=== PATIENT | male | born 1960 | race Caucasian/White ===

== ENCOUNTER 2023-11-21 14:46 | Inpatient (IN) | payer OTHER, SELFPAY ==
[2023-11-17] VITALS (10 sets, daily range): BP systolic 20–156; BP diastolic 62–85; BMI 33.5; BMI 32.6
--- NOTE | 2023-11-17 15:44 | ED.GENMED ---
History of Present Illness
General
Chief Complaint: Abdominal Pain
Source: patient
Exam Limitations: none
Time Seen by Provider: 11/17/23 15:31
Nursing documentation reviewed up to this point in time: agreed with
History of Present Illness
History of Present Illness:
Patient is a 63-year-old male who presents to the ER complaining of abdominal pain for the past 4 hours. He reports pain is mostly in the right lower quadrant. He denies any nausea vomiting diarrhea. It has been constant. He does have a history
of hypertension. He also has been on Zepbound to the past 6 months but has tolerated that well. He does report he gets some constipation from this medication he is a little constipated. He denies any back pain. He denies any urinary frequency
urgency or dysuria. No prior abdominal surgeries.
Past History
Past History
ED Past Medical History: Psychiatric (Anxiety)
ED Past Surgical History: Negative Cardiac
Social History
Tobacco: Non-smoker
Alcohol: None
Drug: None
Personal:
Living: with family
Employment: Employed
Family History
Family History: Other (Noncontributory)
Review of Systems
Review of Systems
Allergies reviewed?: Yes
All Other Systems: ROS reviewed and negative except as documented in HPI and ROS
Constitutional: Reports no symptoms
Respiratory: Reports no symptoms
Cardiac: Reports no symptoms
ABD/GI: Reports abdominal pain and constipated (mild constipation but moved bowels today ); Denies nausea, vomiting or diarrhea
: Reports no symptoms
Musculoskeletal: Reports no symptoms
Skin: Reports no symptoms
Neurological: Reports no symptoms
Psychiatric: Reports no symptoms
Phy Exam
General Physical Exam
General Presentation: no apparent distress
General age: appears stated age
General Skin: warm and dry
General Habitus: normal
General Mental: alert
General Hydration: appears well hydrated
Gastrointestinal Exam
Gastrointestinal Exam: soft and other (Tender right lower quadrant no rebound )
Neurological Exam
Neurological Exam: alert and oriented x3
Musculoskeletal Exam
Musculoskeletal Exam: full ROM
Skin Exam
Skin Exam: normal color and warm/dry
Psychiatric Exam
Psychiatric Exam: normal mood/affect
Course
Orders/Labs/Results
Orders:
Orders
11/17/23 Dinner
2000 calorie (17 carb) Diabetic
At Your Request: Full Participation
Does patient need a safe tray?: No
11/17/23 15:40
Complete Blood Count/With Diff Urgent
Comprehensive Metabolic Panel Urgent
Lipase Urgent
11/17/23 15:44
IV Insert/Care/Rem.- Treatment PRN
0.9% Sodium Chloride 1000 ml [Nss] 1,000 ml IV BOLUS
Ketorolac [Toradol] 15 mg IV NOW STA
11/17/23 15:45
CT Abd/Pel (IV only)-DH only Urgent
Comment:
Reason For Exam: right sided abd pain
11/17/23 17:20
Urinalysis Reflex To Culture Urgent
Date Specimen was Collected: 11/17/23
Time Specimen was Collected: 17:18
11/17/23 17:29
Piperacillin/Tazo 3.375 Gram [Zosyn] 3.375 gram in 50 ml IV NOW
11/17/23 18:02
HYDROmorphone [Dilaudid] 0.25 mg IV PACU-Q5MPRN PRN
HYDROmorphone [Dilaudid] 0.5 mg IV PACU-Q5MPRN PRN
Meperidine [Demerol] 12.5 mg IV PACU-Q5MPRN PRN
Ondansetron Injectable [Zofran] 4 mg IV PACU-ONCEPRN PRN
Prochlorperazine [Compazine] 5 mg IV PACU-ONCEPRN PRN
Notify MD As Directed
Notify physician if: for SDS patients with known or suspected sleep obstructive sleep apnea, monitor in the
PACU.
Notify MD for any apneic/desaturation episodes
O2 Therapy [RESP] Urgent
Titrate/Wean O2 to maintain O2 sat greater than (%): 92
Special Instructions: -Provide supplemental oxygen to achieve O2 sat of 92% or greater.
-After 15 min, may wean O2 and discontinue if patient is able to maintain O2 sat of 92%
or greater during recovery period.
If patient is a discharge home, without oxygen therapy, notify anestheiologist if
unable to maintain O2 SAT of 92% or greater on room air for MD clearance.
11/17/23 18:15
Normosol (Mult Electrolytes) [Normosol-R/Plasmalyte-A] 1,000 ml IV PER PROTOCOL
11/17/23 18:54
Bupivacaine 0.5%Pf/Epinephrin [Sensorcain-Mpf Epi 0.5%-0.0005] 30 ml .ROUTE .STK-MED ONE
11/17/23 18:55
Dexamethasone Sod Phosphate [Decadron] 20 mg .ROUTE .STK-MED ONE
Fentanyl Citrate/Pf [Sublimaze] 100 mcg .ROUTE .STK-MED ONE
Lidocaine HCl/Pf [Xylocaine-Mpf 1% Vial] 50 mg .ROUTE .STK-MED ONE
Midazolam HCl [Versed] 2 mg .ROUTE .STK-MED ONE
Ondansetron Injectable [Zofran] 4 mg .ROUTE .STK-MED ONE
Propofol [Diprivan] 20 ml .ROUTE .STK-MED
11/17/23 19:18
OR Pathology Routine
Pre-Operative Diagnosis: acute appendicitis
Operative Procedure: lap appy
Surgeon: shavonne
Specimen Type: appendix
11/17/23 19:29
HYDROmorphone [Dilaudid] 1 mg .ROUTE .STK-MED ONE
11/17/23 19:39
Sugammadex Sodium [Bridion] 200 mg .ROUTE .STK-MED ONE
11/17/23 20:11
Admit Patient As Directed
Co-Sign Provider:
Level of Care: Post Proc/Surg Recovery
Assign to:: Medical/Surgical
Physician / Group: Shavonne
Diagnosis: Acute appendicitis
Reason for Overnight Stay: Pulmonary Desaturation
Other Reason for Overnight Stay: postop recovery
Code Status As Directed
Resuscitation Status: Full Code
Activity As Directed
Activity Level: Out of Bed-Early Mobility
Anti-embolism (FRANTZ) Hose As Directed
Type: Thigh high
Intake/ Output As Directed
Frequency: Per unit guidelines
Vital Signs As Directed
Frequency: Per unit guidelines
PRN Pain Medication Management As Directed
May give lesser potent ordered pain med per pt: Yes
preference::
Protocol:: Medication orders for pain may be administered in a
manner that supports deferring to patient preference
when the pt is:
- Requesting an ordered lesser potent pain medication.
Least to most potent pain medications are defined
as: acetaminophen < NSAID < tramadol < opioids
(morphine, oxycodone, hydromorphone).
- Requesting a lesser dose of the same medication IF
ORDERED.
- Requesting a less intrusive route of administration
if both routes are prescribed by the provider (PO <
IV).
11/17/23 20:13
DX Deep Vein Thrombosis Video Routine
11/17/23 20:14
Pneumatic Compression Sleeves As Directed
Type: Knee high
11/17/23 20:15
Rx Incentive Spirometry [RESP] Routine
Frequency: q1h while awake
# of times per hour: 10
11/17/23 20:16
Acetaminophen [Tylenol] 650 mg PO Q4HPRN PRN
Ibuprofen [Motrin] 400 mg PO Q6HPRN PRN
Ondansetron Injectable [Zofran] 4 mg IV Q6HPRN PRN
Oxycodone [Roxicodone] 10 mg PO Q4HPRN PRN
Oxycodone [Roxicodone] 5 mg PO Q4HPRN PRN
11/17/23 21:00
Flush (0.9% Sodium Chloride) [Flush (Nss)] See Dose Instructions IV PER PROTOCOL
11/17/23 22:00
Paroxetine [Paxil] 30 mg PO HS
11/17/23 22:40
Cpap [RESP] Routine
Patient to use own unit?: No
Set Pressure (cm H2O): 8
Instructions: hs prn adjust as needed for the patient`s comfort
11/17/23 22:45
0.9% Sodium Chloride 1000 ml [Nss] 1,000 ml IV 80 mls/hr
11/18/23 00:00
Piperacillin/Tazo 3.375 Gram [Zosyn] 3.375 gram in 50 ml IV Q6H
11/18/23 00:41
Type+Screen Stat
BMP [Basic Metabolic Panel] Stat
CBC/With Diff [Complete Blood Count/With Diff] Stat
11/18/23 00:43
Blood Bank Products [* Blood Bank Products] Stat
Blood Bank Products: *Packed RBC Leuko(PRBC's)
Quantity: 2
Transfuse Today: Yes
Reason: Bleeding
11/18/23 01:02
Dexamethasone Sod Phosphate [Decadron] 20 mg .ROUTE .STK-MED ONE
Fentanyl Citrate/Pf [Sublimaze] 100 mcg .ROUTE .STK-MED ONE
Lidocaine 2% Mpf [Xylocaine Mpf 2%] 100 mg .ROUTE .STK-MED ONE
Midazolam HCl [Versed] 2 mg .ROUTE .STK-MED ONE
Propofol [Diprivan] 20 ml .ROUTE .STK-MED
Rocuronium [place] [Rocuronium] 100 mg .ROUTE .STK-MED ONE
11/18/23 01:03
HYDROmorphone [Dilaudid] 0.25 mg IV PACU-Q5MPRN PRN
HYDROmorphone [Dilaudid] 0.5 mg IV PACU-Q5MPRN PRN
Meperidine [Demerol] 12.5 mg IV PACU-Q5MPRN PRN
Ondansetron Injectable [Zofran] 4 mg IV PACU-ONCEPRN PRN
Prochlorperazine [Compazine] 5 mg IV PACU-ONCEPRN PRN
Notify MD As Directed
Notify physician if: for SDS patients with known or suspected sleep obstructive sleep apnea, monitor in the
PACU.
Notify MD for any apneic/desaturation episodes
O2 Therapy [RESP] Urgent
Titrate/Wean O2 to maintain O2 sat greater than (%): 92
Special Instructions: -Provide supplemental oxygen to achieve O2 sat of 92% or greater.
-After 15 min, may wean O2 and discontinue if patient is able to maintain O2 sat of 92%
or greater during recovery period.
If patient is a discharge home, without oxygen therapy, notify anestheiologist if
unable to maintain O2 SAT of 92% or greater on room air for MD clearance.
11/18/23 01:15
Normosol (Mult Electrolytes) [Normosol-R/Plasmalyte-A] 1,000 ml IV PER PROTOCOL
11/18/23 01:22
ABO2 Stat
[employer] Wristband Number:
Associate notified that ABO2 has been ordered: [id number]
Date: 11/18/23
Time: 01:06
Senior Sourcing Manager ID: [id number]
11/18/23 02:06
Tranexamic Acid 1000 mg/100 ml [Tranexamic Acid] 1,000 mg in 100 ml .ROUTE .STK-MED
11/18/23 02:17
Acetaminophen 1000MG/100Ml [Ofirmev] 1,000 mg in 100 ml .ROUTE .STK-MED
11/18/23 02:37
Fentanyl Citrate/Pf [Sublimaze] 100 mcg .ROUTE .STK-MED ONE
11/18/23 03:05
Sugammadex Sodium [Bridion] 200 mg .ROUTE .STK-MED ONE
Tranexamic Acid 1000 mg/100 ml [Tranexamic Acid] 1,000 mg in 100 ml .ROUTE .STK-MED
11/18/23 03:08
Bupivacaine 0.5%Pf/Epinephrin [Sensorcain-Mpf Epi 0.5%-0.0005] 30 ml .ROUTE .STK-MED ONE
11/18/23 03:11
HYDROmorphone [Dilaudid] 1 mg .ROUTE .STK-MED ONE
11/18/23 04:08
Transfer Patient As Directed
Transfer to: IMU- Intermediate Care
11/18/23 05:37
Complete Blood Count/No Diff IN AM
11/18/23 Breakfast
NPO
Allow oral meds: Yes
Allow clear liquids: Sips of Clears
NPO with Ice Chips: Yes
11/18/23 08:00
Amlodipine [Norvasc] 5 mg PO DAILY
Hydrochlorothiazide [Oretic] 25 mg PO DAILY
Lisinopril [Zestril] 40 mg PO DAILY
Rosuvastatin Calcium [Crestor] 20 mg PO DAILY
11/18/23 18:00
Enoxaparin Sodium [Lovenox] 40 mg SC QPM
Abnormal Lab Results
11/17/23 11/17/23 11/18/23
15:40 17:20 00:23
WBC 13.6 H 10^3/uL
(4.8-10.8)
RBC
Hgb
Hct
MCH 32.0 H pg
(27.0-31.0)
Abs Immat Gran (auto) 0.1 H 10^3/uL
(0-0.05)
Absolute Neuts (auto) 10.6 H 10^3/uL
(1.4-6.5)
Absolute Lymphs (auto)
Absolute Monos (auto) 1.0 H 10^3/uL
(0.1-0.6)
Immature Gran %
Neutrophils % 78.3 H %
(42.2-75.2)
Lymphocytes % 11.6 L %
(20.5-51.1)
Carbon Dioxide
BUN 22 H mg/dl
(9-20)
Glucose 104 H mg/dl
(70-99)
Calcium
Urine Ketones 2+ A
(Negative)
POC Glucose 220 H mg/dl
(70-99)
Crossmatch IS Only
11/18/23 11/18/23
00:41 04:03
WBC 14.6 H 10^3/uL
(4.8-10.8)
RBC 3.75 L 10^6/uL
(4.70-6.10)
Hgb 11.7 L D g/dL
(13.0-18.0)
Hct 32.4 L %
(39.0-52.0)
MCH
Abs Immat Gran (auto) 0.1 H 10^3/uL
(0-0.05)
Absolute Neuts (auto) 13.5 H 10^3/uL
(1.4-6.5)
Absolute Lymphs (auto) 0.6 L 10^3/uL
(1.2-3.4)
Absolute Monos (auto)
Immature Gran % 0.6 H %
(0-0.5)
Neutrophils % 93.0 H %
(42.2-75.2)
Lymphocytes % 4.1 L %
(20.5-51.1)
Carbon Dioxide 20 L mmol/L
(22-30)
BUN 22 H mg/dl
(9-20)
Glucose 209 H mg/dl
(70-99)
Calcium 7.8 L D mg/dl
(8.4-10.2)
Urine Ketones
POC Glucose 170 H mg/dl
(70-99)
Crossmatch IS Only See Detail
11/18/23 00:41
11/18/23 00:41
Vital Signs
Initial and Last Documented VS:
Initial Vital Signs
Temp Pulse Resp BP Pulse Ox
98.0 F 78 20 151/85 100
11/17/23 15:06 11/17/23 15:06 11/17/23 15:06 11/17/23 15:06 11/17/23 15:06
Last Documented Vital Signs
Temp Pulse Resp BP Pulse Ox
98.4 F 94 10 115/60 96
11/18/23 08:15 11/18/23 06:15 11/18/23 06:15 11/18/23 04:15 11/18/23 06:16
MDM/Problems Addressed
Differential Diagnosis Includes:
Not limited to appendicitis less likely diverticulitis
MDM/Problems Addressed:
Patient is a 61 show male who presents with right lower quadrant pain for the past several hours. Patient presents tender in the right lower quadrant minimally elevated white count CAT scan does confirm acute appendicitis. Patient also has a 1.9
cm left adrenal mass likely adenoma.
Patient reports he last ate at 11 AM and last had a couple sips of water around 1:30 PM.
Discussed results with patient and instructed patient to be n.p.o. will order IV Zosyn discussed with surgery, DR Marvin who will take pt to OR.
Chronic conditions affecting care:
Hypertension anxiety on lisinopril currently on Zepbound for weight loss
*Critical Care Note
Total Time (30-74mins, 75-104mins- exclusive of procedures): Not Applicable
ED Attending Note
-
Portions of this chart may have been created with voice recognition software.� Occasional wrong word or��sound alike� substitutions may have occurred due to the inherent limitations of voice recognition software.
Discharge Plan
Departure
Patient Disposition: Admit
Date of Disposition: 11/17/23
Time of Disposition: 17:32
Admit to: OR
Admit to doctor: Shavonne
Presentation/result/management discussed w/ accepting MD/DO: Shavonne
Patient with high blood pressure during this ER visit?: Yes
Condition: Fair
Discharge Problem:
Acute appendicitis
Interventions
Interventions:
*Risk Screen - Suicide Last Done: 11/17/23 21:11
*General Assessment Last Done: 11/17/23 15:06
*Neglect/Abuse Screening Last Done: 11/17/23 15:06
ED- Fall Risk Assessment Last Done: 11/17/23 18:50
*ED COVID-19 Vaccine History Last Done: 11/17/23 18:00
*Nursing Disposition Last Done: 11/17/23 18:50
WW-Ymorzl-Lnendoudrr Assessment Last Done: 11/17/23 15:39
Discharge Date and Time
Discharge Date/Time: 11/17/23 18:54
[2023-11-17 15:51] LABS: % Basophils 0.3 % (0-2); % Eosinophils 1.7 % (0-6); % Immature Granulocytes 0.4 % (0-0.5); % Lymphocytes 11.6 % (20.5-51.1); % Monocytes 7.7 % (1.7-9.3); % Neutrophils 78.3 % (42.2-75.2); Absolute Eosinophils 0.2 10^3/uL (0-0.7); Absolute Immature Granulocytes 0.1 10^3/uL (0-0.05); Absolute Lymphocytes 1.6 10^3/uL (1.2-3.4); Absolute Neutrophils 10.6 10^3/uL (1.4-6.5); Hematocrit 42.3 % (39.0-52.0); Hemoglobin 15.2 g/dL (13.0-18.0); Mean Corp Hgb Conc. 35.9 g/dL (33.0-37.0); Mean Corpuscular Volume 89.1 fL (80.0-94.0); Nucleated Red Blood Cells % 0 % (-); Platelet Count 234 10^3/uL (130-400); Red Blood Cell Count 4.75 10^6/uL (4.70-6.10); Red Cell Dist. Width 11.9 % (11.5-14.5); White Blood Cell Count 13.6 10^3/uL (4.8-10.8)
[2023-11-17] MEDS: TORADOL 15 MG IV (15:52)
[2023-11-17] MEDS: NSS 1000 IV ×2 (15:52→22:44)
[2023-11-17 16:04] LABS: ALT (SGPT) 28 U/L (0-50); AST (SGOT) 27 U/L (17-59); Albumin 4.8 g/dl (3.5-5.0); Alkaline Phosphatase 60 U/L (38-126); Blood Urea Nitrogen 22 mg/dl (9-20); Calcium 9.3 mg/dl (8.4-10.2); Carbon Dioxide 28 mmol/L (22-30); Chloride 99 mmol/L (98-107); Estimated Creatinine Clearance 85 ml/min; Glucose 104 mg/dl (70-99); Potassium 3.7 mmol/L (3.5-5.1); Sodium 139 mmol/L (135-145); Total Bilirubin 0.7 mg/dl (0.2-1.3); Total Protein 7.4 g/dl (6.3-8.2); eGFR > 60.00
[2023-11-17 16:05] LABS: Lipase 87 U/L (23-300)
[2023-11-17 17:36] LABS: Urine Albumin Negative (Neg - Trace); Urine Bilirubin Negative (Negative); Urine Character Clear (Clear); Urine Color Yellow; Urine Glucose Negative (Negative); Urine Ketone 2+ (Negative); Urine Leukocyte Negative (Negative); Urine Nitrite Negative (Negative); Urine Occult Blood Negative (Negative); Urine Urobilinogen Negative (Neg - 1+)
[2023-11-17] MEDS: ZOSYN 50 IV (17:39)
--- NOTE | 2023-11-17 20:19 | CON.GS ---
Consultation
-
Requesting Provider: Leonor
Performing Provider: Shavonne
Reason for Consultation: Acute appendicitis
Medical History
-
Chief Complaint: Abd pain
History of Present Illness:
63M with acute onset abd pain that began earlier today. Localized to RLQ without radiation. Constant and sharp. Denies f/c/n/v. Denies exacerbating/relieving factors.
Past Medical History
Past Medical History: HTN and Psychiatric
Past Surgical History: Reviewed & Noncontributory
Social History
Tobacco: Non-Smoker
Alcohol: None
Drug: None
Personal:
Living: With Family
Employment: Employed
Family History
Family History: Reviewed & Noncontributory
Allergies / Home Medications
Allergy/AdvReac Type Severity Reaction Status Date / Time
No Known Allergies Allergy Unverified 07/29/21 17:48
�Medication �Instructions �Recorded �Confirmed �Type
[facility] Vitamin Pack 1 dose PO DAILY 11/17/23 11/17/23 History
amlodipine 5 mg tablet 5 mg PO DAILY 11/17/23 11/17/23 History
hydrochlorothiazide 25 mg tablet 25 mg PO DAILY 11/17/23 11/17/23 History
lisinopril 40 mg tablet 40 mg PO DAILY 11/17/23 11/17/23 History
paroxetine HCl 30 mg tablet 30 mg PO HS 11/17/23 11/17/23 History
rosuvastatin 20 mg tablet 20 mg PO DAILY 11/17/23 11/17/23 History
tirzepatide (weight loss) 12.5 12.5 mg SC MARSH 11/17/23 11/17/23 History
mg/0.5 mL subcutaneous pen
injector (Zepbound)
Review of Systems
-
A 10 point review of systems was completed, and was negative except as per HPI.
Physical Exam
Vital Signs
Temp Pulse Resp BP Pulse Ox
98.0 F 92 20 153/85 98
11/17/23 15:06 11/17/23 17:44 11/17/23 17:44 11/17/23 17:44 11/17/23 17:44
11/16/23 11/17/23 11/18/23
06:59 06:59 06:59
Actual Weight 105.9 kg
Body Mass Index (BMI) 33.5
Lab Results
11/17/23 15:40
11/17/23 15:40
WBC 13.6 10^3/uL (4.8-10.8) H 11/17/23 15:40
Hgb 15.2 g/dL (13.0-18.0) 11/17/23 15:40
Hct 42.3 % (39.0-52.0) 11/17/23 15:40
Plt Count 234 10^3/uL (130-400) 11/17/23 15:40
Abs Immat Gran (auto) 0.1 10^3/uL (0-0.05) H 11/17/23 15:40
Neutrophils % 78.3 % (42.2-75.2) H 11/17/23 15:40
Physical Exam
General: Well Developed, Well Nourished and No Apparent Distress
HEENT: Normocephalic and Anicteric
GI: Soft, Non Distended, Tender (ttp to RLQ) and Obese
Skin: Warm and Dry
Neuro: AO x 3
Psych: Calm
Data Reviewed
-
CT Scan: Image Personally Visualized and interpreted, Report Reviewed by me, Discussed with Physician, Discussed with Patient and Discussed with Family
Labs: Labs Reviewed by me, Discussed with Physician, Discussed with Patient and Discussed with Family
Assessment / Plan
-
63M with uncomplicated acute appendicitis
AFVSS, ttp to RLQ, mild leukocytosis noted
CT with retrocecal inflamed appearing appendix with fecalith
No evidence of perforation
OCTOR for lap appy
Admit to surgery
IV abx
Informed consent obtained
--- NOTE | 2023-11-17 20:25 | OR.RPT ---
Operative Report
Operative Report
Primary Surgeon: Shavonne
Pre-op Diagnosis: Acute appendicitis
Post-op Diagnosis: Same
Procedure Performed: Laparoscopic appendectomy
Anesthesia Type: GETA
Specimen / Cultures: Appendix
Estimated Blood Loss: 25cc
Complications: None immediate
Operative Findings: Retrocecal appendix densely adherent to lateral cecal sidewall, yellow pus around the appendix, none in the pelvis, 19fr marialuisa drain
Date of Surgery: 11/17/23
Indications: This 63M developed right lower quadrant abdominal pain and on workup was found to have acute appendicitis. Laparoscopic appendectomy was elected.
Description of procedure: The patient was placed on the operating table in the supine position. General anesthesia was induced. A time-out was completed verifying correct patient, procedure, site, positioning, and special equipment prior to
beginning this procedure. An orogastric tube was placed. The abdomen was prepped and draped in the usual sterile fashion. A stab incision was made in left upper quadrant and the Veress needle was inserted. Proper position was confirmed by aspiration
and saline meniscus test. The abdomen was insufflated with carbon dioxide to a pressure of 12 mmHg. The patient tolerated insufflation well.
A 5mm optical trocar was then inserted at the left lower quadrant. The laparoscope was inserted and the abdomen inspected. No injuries from initial trocar placement or Veress needle insertion were noted. Additional trocars were then inserted in the
following locations: a 12-mm trocar at the umbilicus and a 5-mm trocar midline in the suprapubic space. The abdomen was inspected and no abnormalities were found. The table was placed in the Trendelenburg position with the right side up. The
appendix was retrocecal and lateral to the cecum. The cecum was gently retracted medially and mobilized along the avascular plane with the voyant device to improve exposure. The tip of the appendix was gently grasped with an atraumatic grasper and
retracted toward the patient�s feet and abdominal wall. This maneuver exposed the appendiceal blood supply which was controlled with the voyant device. Following this, a laparoscopic linear cutting stapler with a 45mm epps load was deployed and used
to transect the appendix at its base. The appendix was placed in an endoscopic retrieval bag, removed through the umbilical port, and passed off the table as a specimen.
We then turned our attention to the staple line, which was noted to be oozing slightly. A raytec was used and direct pressure appluied for several minutes until hemostasis was assured. The area was irrigated with sterile saline. Scant turbid fluid
was suctioned from the pelvis. The umbilical trocar site was closed at the fascial level laparoscopically with 2-0 PDS under direct vision. Secondary trocars were removed under direct vision and noted to be hemostatic. The laparoscope was withdrawn
and the abdomen was allowed to collapse. The skin was closed with subcuticular sutures of 4-0 monocryl and topical skin adhesive. The orogastric tube was removed.
The patient tolerated the procedure well and was taken to the postanesthesia care unit in stable condition.
[2023-11-17] MEDS: ROXICODONE 5 MG PO (21:24)
[2023-11-17] MEDS: PAXIL 30 MG PO (22:01)
[2023-11-18] VITALS (48 sets, daily range): BP systolic 40–162; BP diastolic 46–90; PULSE 109; BMI 33.9
[2023-11-18] MEDS: MOTRIN 400 MG PO (00:04)
[2023-11-18] MEDS: ZOSYN 50 IV ×5 (00:05→23:19)
[2023-11-18 00:30] LABS: Glucose - Point of Care 220 mg/dl (70-99)
[2023-11-18 00:55] LABS: % Basophils 0.1 % (0-2); % Immature Granulocytes 0.6 % (0-0.5); % Lymphocytes 4.1 % (20.5-51.1); % Monocytes 2.1 % (1.7-9.3); Absolute Immature Granulocytes 0.1 10^3/uL (0-0.05); Absolute Lymphocytes 0.6 10^3/uL (1.2-3.4); Absolute Monocytes 0.3 10^3/uL (0.1-0.6); Absolute Neutrophils 13.5 10^3/uL (1.4-6.5); Hematocrit 32.4 % (39.0-52.0); Hemoglobin 11.7 g/dL (13.0-18.0); Mean Corp Hgb Conc. 35.7 g/dL (33.0-37.0); Mean Corpuscular Hgb 30.9 pg (27.0-31.0); Mean Corpuscular Volume 86.7 fL (80.0-94.0); Mean Platelet Volume 8.9 fL (7.4-10.4); Nucleated Red Blood Cells % 0 % (-); Platelet Count 255 10^3/uL (130-400); Red Blood Cell Count 3.75 10^6/uL (4.70-6.10); White Blood Cell Count 14.6 10^3/uL (4.8-10.8)
--- NOTE | 2023-11-18 01:01 | W.PN.UPDATE ---
Addendum entered and electronically signed by Manan Marvin MD 11/21/23 12:15:
CDI: Pt with acute blood loss anemia
Addendum entered and electronically signed by Manan Marvin MD 11/18/23 01:06:
updated by phone
Original Note:
Update Note
Progress Note Update
Called to bedside for approx 350cc bloody drain output. Pt pale and diaphoretic. HR 90s, SBP 80s. Pt AAOx3.
1 18g and 1 22g in use and 2nd 18g IV access now being placed. 2L NS bolus running.
2 u PRBC ordered STAT
Plan for emergent RTOR for exploratory laparotomy
--- NOTE | 2023-11-18 01:12 | W.PN.UPDATE ---
Update Note
Progress Note Update
-Reported by the nursing staff that the patient is hypotensive 78/51 hr 85, symptomatic, JADA drain with fresh blood, total draining amount of 270cc.
Dr. Marvin notified
-One exam, RT lower abdomen swollen and firm. Patient is awake but feels weak. JADA drain continue to drain more fresh blood.
-Stat orders of IVF open wide, NSS total 2000cc, blood consent obtained, type and screen, and one unit of blood ordered.
-Dr Marvin at bedside to assess, another unit of blood added per Dr. Marvin request.
-Blood started
- Patient will be taken to OR.
[2023-11-18 01:16] LABS: Blood Urea Nitrogen 22 mg/dl (9-20); Calcium 7.8 mg/dl (8.4-10.2); Carbon Dioxide 20 mmol/L (22-30); Chloride 102 mmol/L (98-107); Estimated Creatinine Clearance 77 ml/min; Glucose 209 mg/dl (70-99); Potassium 4.1 mmol/L (3.5-5.1); Sodium 138 mmol/L (135-145); eGFR > 60.00
--- NOTE | 2023-11-18 01:40 | PTCARENOTE ---
12:20 pts b/p 78/51 hr 85 rr 22 afebrile , J-p has drained 100cc blood drained, his abd is notably more swollen and firm to palpation on his right quad than when he arrived to the unit. Pt is diaphoretic and expressing he is not feeling well. SBAR
given to MECHANICAL ASSEMBLER possibly internal bleeding. orders for NSS x2L WO, j-p put out another 100cc blood drainage at this time, MECHANICAL ASSEMBLER quickly responded was at the bedside aprox 12:28. 70cc blood drained from J-P, at this time, Dr Marvin was notified, orders for
STAT type and cross, J-P drained another 70cc. new IV access 18 on l wrist. Blood verified by 2 RNs per protocol, 1unit blood hung at aprox 1:10 vs 102/59, hr84,rr16 temp 98.0, at this time j-p drained 60cc blood, orders for ABO2 lab drawn. second
unit of blood verified by 2 RNs per protocol and hung 1:20 vs 106/58, hr 81, rr18,temp 98.6, OR given report and aprox 1:[address] his [address] to OR.
--- NOTE | 2023-11-18 02:55 | PTCARENOTE ---
12:20 pts b/p 78/51 hr 85 rr 22 afebrile , J-p has drained 100cc blood drained, his abd is notably more swollen and firm to palpation on his right quad than when he arrived to the unit. Pt is diaphoretic and expressing he is not feeling well. SBAR
given to SMOKING TOBACCO CUTTER OPERATOR possibly internal bleeding. orders for NSS x2L WO, j-p put out another 100cc blood drainage at this time, SMOKING TOBACCO CUTTER OPERATOR quickly responded was at the bedside aprox 12:28, orders place pt on telemetry 70cc blood drained from J-P, at this time,
Shavonne was notified, orders for STAT type and cross, J-P drained another 70cc. new IV access 18 on l wrist. Blood verified by 2 RNs per protocol, 1unit blood hung at aprox 1:10 vs 102/59, hr84,rr16 temp 98.0, at this time j-p drained 60cc blood,
orders for ABO2 lab drawn. second unit of blood verified by 2 RNs per protocol and hung 1:20 vs 106/58, hr 81, rr18,temp 98.6, OR given report and aprox 1:24 pt was [address] his way to OR.
[2023-11-18 04:04] LABS: Glucose - Point of Care 170 mg/dl (70-99)
--- NOTE | 2023-11-18 04:10 | W.IMMPOSTOP ---
Addendum entered and electronically signed by Manan Marvin MD 11/18/23 04:23:
1g TXA given at induction; 2nd gram given at conclusion of operation
Original Note:
Surgical Immed Post Op Note
-
Primary Surgeon: Shavonne
Pre-op Diagnosis: Post-op bleeding
Post-op Diagnosis: Same
Procedure Performed: Exploratory laparotomy
Anesthesia Type: GETA
Specimen / Cultures: None
Estimated Blood Loss: 750cc
Complications: None
Operative Findings: About 300cc old blood and clot in the belly; right lower quadrant retroperitoneum raw surface oozing controlled by oversewing with 2-0 monocryl stratafix; right colon medialized to improve exposure; no discrete bleeding vessel
identified; dwight deployed to the area; 19fr marialuisa drain placed into the RLQ over the area of oozing; ngt confirmed in the stomach; bean placed
updated by phone
[2023-11-18 05:03] LABS: Glucose - Point of Care 195 mg/dl (70-99)
--- NOTE | 2023-11-18 05:27 | PTCARENOTE ---
pt arrived from PACU, pt drowsy but AAOx3, denies pain and SOB, 2L NC, lungs diminished, shallow breaths, NGT R nare low int suction, midline surgical dressing and JADA C/D/I, bean, bed alarm on, call shultz in reach.
[2023-11-18] MEDS: OFIRMEV 100 IV ×4 (05:34→22:17)
[2023-11-18 05:58] LABS: Hematocrit 33.9 % (39.0-52.0); Hemoglobin 12.2 g/dL (13.0-18.0); Mean Corpuscular Hgb 30.4 pg (27.0-31.0); Mean Corpuscular Volume 84.5 fL (80.0-94.0); Mean Platelet Volume 9.2 fL (7.4-10.4); Platelet Count 170 10^3/uL (130-400); Red Blood Cell Count 4.01 10^6/uL (4.70-6.10); Red Cell Dist. Width 12.7 % (11.5-14.5); White Blood Cell Count 12.7 10^3/uL (4.8-10.8)
[2023-11-18] MEDS: NSS 1000 IV (05:58)
[2023-11-18 06:03] LABS: INR 1.26; PT 15.8 Sec (11.4-14.6)
[2023-11-18 06:04] LABS: APTT 26.1 Sec (23.4-35.0)
[2023-11-18 06:18] LABS: Blood Urea Nitrogen 21 mg/dl (9-20); Calcium 6.8 mg/dl (8.4-10.2); Carbon Dioxide 20 mmol/L (22-30); Chloride 104 mmol/L (98-107); Estimated Creatinine Clearance 104 ml/min; Glucose 184 mg/dl (70-99); Magnesium 1.8 mg/dl (1.6-2.3); Sodium 138 mmol/L (135-145); eGFR > 60.00
[2023-11-18] MEDS: CALCIUM GLUCONATE 100 IV (06:44)
[2023-11-18] MEDS: CRESTOR PO (09:03)
[2023-11-18] MEDS: MORPHINE SULFATE 2 MG IV (10:09)
--- NOTE | 2023-11-18 13:57 | W.PN.GS2 ---
Today's Communication / Plan
-
continue to montitor in IMU
IV abx
NPO/IVF/NGT
Assessment / Plan
-
63M POD1 s/p laparoscopic appendectomy c/b post-op hemorrhage now POD0 s/p exploratory laparotomy
AFVSS, no complaints this am other than sore throat from NGT
Drain output appears sanguinous, volume low
Hb 12.2 this am (he received 2L NS and 3u PRBCs over the course of the night)
Coags essentially unremarkable
Plts WNL
Excellent UOP
Operative findings without any notable bleeding vessel, some raw surface oozing was noted
His tells me she remembers 5 years ago he had nasal polyps removed and the procedure took much longer than expected, when the surgeon finally came out he said there was great difficulty controlling bleeding and asked if he was on blood
thinners. He was not. My impression during the case overnight was that his bleeding was indeed behaving like someone on anticoagulation. Could be that there is an underlying clotting disorder, though there is no other history of bleeding issues
outside of these 2 events.
Would continue IMU level of care for today
Trend labs
Monitor vitals
Monitor drain output
IV abx
IVF/NPO/NGT, he is at risk of ileus given hemoperitoneum
PRN pain meds
SCDs for DVT ppx
Hold home BP meds
Subjective Data
-
Date of Service: November 18, 2023
AFVSS, pain controlled, denies n/v
Objective Data
-
Intake and Output
11/17/23 11/18/23 11/19/23
06:59 06:59 06:59
Intake Total 230 / 230
Output Total 1340 / 1340 130 / 130
Balance -1110 / -1110 -130 / -130
Intake:
Oral fluids 0 / 0
IV fluids (Total) 200 / 200
normosol 200 / 200
Amount instilled into GI Tube (
Total)
[place] Sump
Output:
Drain Output (Total) 535 / 535 130 / 130
Left Abdomen Primo-Cole 475 / 475 130 / 130
Right Abdomen Primo-Cole 60 / 60
Gastrointestinal tube output (
Total)
[place] Sump /
Urine, Neumann 775 / 775
Vital Signs
Temp Pulse Resp BP Pulse Ox
99.4 F 94 10 115/60 97
11/18/23 11:12 11/18/23 06:15 11/18/23 06:15 11/18/23 04:15 11/18/23 07:52
Lab Results
11/18/23 05:37
11/18/23 05:37
Calcium 6.8 mg/dl (8.4-10.2) L* 11/18/23 05:37
Phosphorus 4.0 mg/dl (2.5-4.5) 11/18/23 05:37
Magnesium 1.8 mg/dl (1.6-2.3) 11/18/23 05:37
Total Bilirubin 0.7 mg/dl (0.2-1.3) 11/17/23 15:40
AST 27 U/L (17-59) 11/17/23 15:40
ALT 28 U/L (0-50) 11/17/23 15:40
Alkaline Phosphatase 60 U/L (38-126) 11/17/23 15:40
Total Protein 7.4 g/dl (6.3-8.2) 11/17/23 15:40
Albumin 4.8 g/dl (3.5-5.0) 11/17/23 15:40
Physical Exam
-
Gen: NAD
Abd: soft, aprop ttp, midline dressing OK, drain with bloody output, approx 10cc/hr over past 8 hrs
[2023-11-18] MEDS: D5/0.45%NSS with KCL 20 MEQ 1000 IV ×2 (14:12→22:17)
[2023-11-18] MEDS: MORPHINE SULFATE 4 MG IV ×3 (14:16→22:18)
[2023-11-18] MEDS: CHLORASEPTIC/SORE THROAT SPRAY 1 SPRAY PO (14:40)
--- NOTE | 2023-11-18 14:58 | CM ---
CM reviewed medical records. CM met with patient and in room. Patient has just received pain medication and was sleeping during IA. confirmed that patient is independent with all needs. Patient does not have a history of SNF, VN . Patient
does have a CPAP. Patient is active with his PCP and uses [facility] for medication services.
CM will continue to follow for needs.
PLAN: Home no needs.
--- NOTE | 2023-11-18 18:50 | PTCARENOTE ---
Pt received in bed @ 0700. AAOx3. PRN Dilaudid and scheduled Ofirmev IV given for pain. SaO2 97% on 2L NC. Right nare NGT to LIWS. Green/brown output. Sinus rhythm/Sinuis tach on groundwater monitoring technician. Neumann catheter draining leslie urine. 875ml total
for shift. (L) JADA drain with sanguineus output. Dressing C/D/I. Midline surgical dressing with old drainage.
[2023-11-18] MEDS: PAXIL PO (22:18)
[2023-11-19] VITALS (53 sets, daily range): BP systolic 128–150; BP diastolic 64–89; BMI 33.2
[2023-11-19] MEDS: MORPHINE SULFATE 4 MG IV ×6 (02:42→22:34)
[2023-11-19] MEDS: D5/0.45%NSS with KCL 20 MEQ 1000 IV ×3 (05:05→20:58)
[2023-11-19] MEDS: ZOSYN 50 IV ×4 (05:06→22:44)
[2023-11-19 05:31] LABS: % Basophils 0.2 % (0-2); % Immature Granulocytes 0.6 % (0-0.5); % Lymphocytes 8.9 % (20.5-51.1); % Monocytes 9.2 % (1.7-9.3); % Neutrophils 81.1 % (42.2-75.2); Absolute Immature Granulocytes 0.1 10^3/uL (0-0.05); Absolute Lymphocytes 1.1 10^3/uL (1.2-3.4); Absolute Monocytes 1.1 10^3/uL (0.1-0.6); Absolute Neutrophils 9.9 10^3/uL (1.4-6.5); Hematocrit 31.5 % (39.0-52.0); Hemoglobin 11.1 g/dL (13.0-18.0); Mean Corp Hgb Conc. 35.2 g/dL (33.0-37.0); Mean Corpuscular Hgb 30.2 pg (27.0-31.0); Mean Corpuscular Volume 85.6 fL (80.0-94.0); Nucleated Red Blood Cells % 0 % (-); Platelet Count 173 10^3/uL (130-400); Red Blood Cell Count 3.68 10^6/uL (4.70-6.10); Red Cell Dist. Width 13.2 % (11.5-14.5); White Blood Cell Count 12.1 10^3/uL (4.8-10.8)
[2023-11-19 06:00] LABS: Blood Urea Nitrogen 18 mg/dl (9-20); Calcium 7.5 mg/dl (8.4-10.2); Carbon Dioxide 29 mmol/L (22-30); Chloride 102 mmol/L (98-107); Estimated Creatinine Clearance 104 ml/min; Glucose 126 mg/dl (70-99); Potassium 4.3 mmol/L (3.5-5.1); Sodium 140 mmol/L (135-145); eGFR > 60.00
[2023-11-19] MEDS: CRESTOR PO (07:57)
--- NOTE | 2023-11-19 09:00 | PTCARENOTE ---
Rec'd pt at 0800 awake and alert resting in bed. States overall he feels ok. States Morphine given earlier helped his abd soreness. Rates it a 3/10 currently. DOMINIC. Denies headache or dizziness. Skin is pink wm and dry. Respirs are sl shallow but
non-labored. Rec'd pt on 2l nc with sats of 98%- changed over to RA at 0800 and sats are 95%. BS are sl decreased but clear. Monitor SR. + pulses. No edema. KH TEDS and SCD's intact. VS as documented. Abd is round and soft with very hypoactive BS. R
nare salem NG intact to low intermittent suction draining brownish/greenish secretions. Placement auscultated. Denies nausea. LLQ JADA drain to bulb suction draining sang drainage. Midline abd incision with aquacell dressing over. Old drainage on
dressing. Neumann intact for yellow urine. IV D5 1/2NS+ 20 meq KCL infusing at 125 ml/hr via L hand IV site. Capped ints inact L wrist and L AC. Sites wnl. Pt turned and repositioned. Abd splint pillow given and pt instructed to use with with
coughing/movement. Complete CHG bath given. Neumann care given. Turned and repositioned. Call shultz in reach. Family in to see pt.
[2023-11-19] MEDS: FLUSH (NSS) 1 FLUSH IV ×2 (10:49→18:49)
--- NOTE | 2023-11-19 10:50 | PTCARENOTE ---
Pt resting visiting with family. C/O 08/30 abd pain- Medicated with Morphine 4 mg IV per orders. Plan to try to get oob in 30 min. No other changes. NG draining brownish drainage
--- NOTE | 2023-11-19 11:50 | PTCARENOTE ---
Pt states the Morphine helped the abd soreness -pain about a 3/10. Currently assisted oob to the chair with assist of 1. Admitted to abd pain with standing. No dizziness. VS as documented. JADA emptied for 20 ml sanginous drainage. Family at the
bedside.
--- NOTE | 2023-11-19 14:20 | PTCARENOTE ---
Assisted back to bed. Overall tolerated being oob well. Does complain of abd soreness especially with moving. VS as documented. Call shultz in reach.
--- NOTE | 2023-11-19 14:21 | W.PN.GS2 ---
Today's Communication / Plan
-
63M POD2 s/p laparoscopic appendectomy c/b post-op hemorrhage, POD1 s/p exploratory laparotomy
AFVSS, no complaints this am other than sore throat from NGT
Drain output appears sanguinous
Hb 11.1 (12.1), no further transfusions
-Would continue IMU level of care for today
-Trend labs
-Monitor vitals
-Monitor drain output
-IV abx
-IVF/NPO/NGT, he is at risk of ileus given hemoperitoneum. Okay for ice chips.
-PRN pain meds
-SCDs for DVT ppx
-Hold home BP meds
Assessment / Plan
-
63M POD1 s/p laparoscopic appendectomy c/b post-op hemorrhage now POD0 s/p exploratory laparotomy
AFVSS, no complaints this am other than sore throat from NGT
Drain output appears sanguinous, volume low
Hb 12.2 this am (he received 2L NS and 3u PRBCs over the course of the night)
Coags essentially unremarkable
Plts WNL
Excellent UOP
Operative findings without any notable bleeding vessel, some raw surface oozing was noted
His tells me she remembers 5 years ago he had nasal polyps removed and the procedure took much longer than expected, when the surgeon finally came out he said there was great difficulty controlling bleeding and asked if he was on blood
thinners. He was not. My impression during the case overnight was that his bleeding was indeed behaving like someone on anticoagulation. Could be that there is an underlying clotting disorder, though there is no other history of bleeding issues
outside of these 2 events.
Would continue IMU level of care for today
Trend labs
Monitor vitals
Monitor drain output
IV abx
IVF/NPO/NGT, he is at risk of ileus given hemoperitoneum
PRN pain meds
SCDs for DVT ppx
Hold home BP meds
Subjective Data
-
Date of Service: November 19, 2023
Patient states he is in a lot of pain. He has no bowel movements or flatus yet. He is a little nauseous.
Objective Data
-
Intake and Output
11/18/23 11/19/23 11/20/23
06:59 06:59 06:59
Intake Total 230 / 230 2675 / 2675 750 / 750
Output Total 1340 / 1340 3055 / 3055 450 / 450
Balance -1110 / -1110 -380 / -380 300 / 300
Intake:
Oral fluids 0 / 0
IV fluids (Total) 200 / 200 1974 750 / 750
D5/0.45%NSS with KCL 20 MEQ 20 1974 750 / 750
meq In 1,000 ml @ 125 mls/hr IV
.Q8H [facility] Rx#:[id number]
normosol 200 / 200
IV piggybacks 700 / 700
Amount instilled into GI Tube ( 30 / 30 0 / 0
Total)
[place] Sump 30 / 30 0 / 0
Output:
Drain Output (Total) 535 / 535 205 / 205 30 / 30
Left Abdomen Primo-Cole 475 / 475 205 / 205 30 / 30
Right Abdomen Primo-Cole 60 / 60
Gastrointestinal tube output ( 30 / 30 1225 / 1225
Total)
[place] Sump 30 / 30 1225 / 1225
Urine, Neumann 775 / 775 1625 / 1625 420 / 420
Vital Signs
Temp Pulse Resp BP Pulse Ox
98.7 F 89 11 138/72 95
11/19/23 11:00 11/19/23 13:00 11/19/23 13:00 11/19/23 13:00 11/19/23 13:00
Lab Results
11/19/23 05:12
11/19/23 05:12
Calcium 7.5 mg/dl (8.4-10.2) L 11/19/23 05:12
Phosphorus 4.0 mg/dl (2.5-4.5) 11/18/23 05:37
Magnesium 1.8 mg/dl (1.6-2.3) 11/18/23 05:37
Total Bilirubin 0.7 mg/dl (0.2-1.3) 11/17/23 15:40
AST 27 U/L (17-59) 11/17/23 15:40
ALT 28 U/L (0-50) 11/17/23 15:40
Alkaline Phosphatase 60 U/L (38-126) 11/17/23 15:40
Total Protein 7.4 g/dl (6.3-8.2) 11/17/23 15:40
Albumin 4.8 g/dl (3.5-5.0) 11/17/23 15:40
Physical Exam
-
Gen: NAD
Abd: soft, non-distended, mildly tender around incision, midline dressing OK, drain with bloody output, 155ml over 24 hours
--- NOTE | 2023-11-19 14:56 | PTCARENOTE ---
Remedicated with Morphine 4 mg IV for 08/[address] Christy in to see pt and updated. No other changes.
--- NOTE | 2023-11-19 16:00 | PTCARENOTE ---
States abd discomfort post Morphine is a 3. No complaints offered. O2 sats are 94%.
--- NOTE | 2023-11-19 18:45 | PTCARENOTE ---
Resting. Remedicated with Morphine 4 mg IV for 08/30 abd pain
[2023-11-19] MEDS: PAXIL PO (20:59)
[2023-11-20] VITALS (12 sets, daily range): BP systolic 136–157; BP diastolic 69–107; BMI 32.9
[2023-11-20] MEDS: MORPHINE SULFATE 2 MG IV ×3 (01:37→22:39)
[2023-11-20] MEDS: ZOFRAN 4 MG IV (01:38)
--- NOTE | 2023-11-20 01:48 | PTCARENOTE ---
Pt resting comfortably overnight, pain well controlled with Morphine. Abdomen tender, soft, JADA with scant serosang output. No flatus, hypoactive bowel sounds. 950cc brown/green NG output thus far in shift. Will monitor.
[2023-11-20] MEDS: ZOSYN 50 IV ×3 (05:11→17:45)
[2023-11-20] MEDS: D5/0.45%NSS with KCL 20 MEQ 1000 IV ×3 (05:11→22:41)
[2023-11-20 05:13] LABS: % Basophils 0.2 % (0-2); % Eosinophils 0.1 % (0-6); % Immature Granulocytes 0.4 % (0-0.5); % Lymphocytes 23.7 % (20.5-51.1); % Monocytes 9.8 % (1.7-9.3); % Neutrophils 65.8 % (42.2-75.2); Absolute Lymphocytes 2.2 10^3/uL (1.2-3.4); Absolute Monocytes 0.9 10^3/uL (0.1-0.6); Absolute Neutrophils 6.1 10^3/uL (1.4-6.5); Hematocrit 32.2 % (39.0-52.0); Hemoglobin 11.2 g/dL (13.0-18.0); Mean Corp Hgb Conc. 34.8 g/dL (33.0-37.0); Mean Corpuscular Hgb 31.5 pg (27.0-31.0); Mean Corpuscular Volume 90.4 fL (80.0-94.0); Mean Platelet Volume 8.9 fL (7.4-10.4); Nucleated Red Blood Cells % 0 % (-); Platelet Count 156 10^3/uL (130-400); Red Blood Cell Count 3.56 10^6/uL (4.70-6.10); Red Cell Dist. Width 13.1 % (11.5-14.5); White Blood Cell Count 9.4 10^3/uL (4.8-10.8)
[2023-11-20 05:36] LABS: Blood Urea Nitrogen 14 mg/dl (9-20); Calcium 8.1 mg/dl (8.4-10.2); Carbon Dioxide 33 mmol/L (22-30); Chloride 102 mmol/L (98-107); Estimated Creatinine Clearance 103 ml/min; Glucose 103 mg/dl (70-99); Potassium 4.3 mmol/L (3.5-5.1); Sodium 140 mmol/L (135-145); eGFR > 60.00
[2023-11-20] MEDS: MORPHINE SULFATE 4 MG IV ×3 (09:14→19:31)
--- NOTE | 2023-11-20 10:18 | PTCARENOTE ---
Pt OOB to chair w/ assist x 1. Pre-medicated w/ morphine - tolerated moving well.
--- NOTE | 2023-11-20 12:42 | W.PN.GS2 ---
Today's Communication / Plan
-
continue NGT
Assessment / Plan
-
63M POD3 s/p laparoscopic appendectomy c/b post-op hemorrhage, POD1 s/p exploratory laparotomy
AFVSS, no complaints this am other than sore throat from NGT
Drain output appears sanguinous
Hb 9.4 (12.1), no further transfusions
-Would continue IMU level of care for today
-Trend labs
-Monitor vitals
-Monitor drain output
-IV abx
-IVF/NPO/NGT, he is at risk of ileus given hemoperitoneum. Okay for ice chips.
-PRN pain meds
-SCDs for DVT ppx
-Hold home BP meds
Subjective Data
-
Date of Service: November 20, 2023
Patient states his pain is controlled. He has no nausea or vomiting. He is not having any bowel movements or flatus yet.
Objective Data
-
Intake and Output
11/19/23 11/20/23 11/21/23
06:59 06:59 06:59
Intake Total 2675 / 2675 2925 / 2925 500 / 500
Output Total 3055 / 3055 3730 / 3730 965 / 965
Balance -380 / -380 -805 / -805 -465 / -465
Intake:
IV fluids (Total) 1974 2875 / 2875 500 / 500
D5/0.45%NSS with KCL 20 MEQ 20 1974 2875 / 2875 500 / 500
meq In 1,000 ml @ 125 mls/hr IV
.Q8H [facility] Rx#:[id number]
IV piggybacks 700 / 700 50 / 50
Amount instilled into GI Tube ( 0 / 0
Total)
[place] Sump 0 / 0
Output:
Drain Output (Total)
Left Abdomen Primo-Cole
Gastrointestinal tube output ( 1225 / 1225 2350 / 2350 600 / 600
Total)
[place] Sump 1225 / 1225 2350 / 2350 600 / 600
Urine, Neumann 1625 / 1625 1290 / 1290 300 / 300
Vital Signs
Temp Pulse Resp BP Pulse Ox
98.6 F 82 8 139/73 95
11/20/23 12:26 11/20/23 06:00 11/20/23 06:00 11/20/23 06:00 11/20/23 08:11
Lab Results
11/20/23 05:06
11/20/23 05:06
Calcium 8.1 mg/dl (8.4-10.2) L 11/20/23 05:06
Phosphorus 4.0 mg/dl (2.5-4.5) 11/18/23 05:37
Magnesium 1.8 mg/dl (1.6-2.3) 11/18/23 05:37
Total Bilirubin 0.7 mg/dl (0.2-1.3) 11/17/23 15:40
AST 27 U/L (17-59) 11/17/23 15:40
ALT 28 U/L (0-50) 11/17/23 15:40
Alkaline Phosphatase 60 U/L (38-126) 11/17/23 15:40
Total Protein 7.4 g/dl (6.3-8.2) 11/17/23 15:40
Albumin 4.8 g/dl (3.5-5.0) 11/17/23 15:40
Physical Exam
-
Gen: NAD
Abd: soft, non-distended, mildly tender around incision, midline dressing OK, drain with bloody output, 125ml over 24 hours
[2023-11-20] MEDS: PAXIL PO (21:50)
[2023-11-21] VITALS (9 sets, daily range): BP systolic 138–170; BP diastolic 68–104; BMI 32.7
--- NOTE | 2023-11-21 00:34 | PTCARENOTE ---
Pt received at 19:00, initial assessment as documented. Assessment remains unchanged. NGT with 650ml brown output at start of shift. Safe environment maintained, call shultz within reach. Pt repositioning self.
[2023-11-21] MEDS: ZOSYN 50 IV ×4 (00:42→17:17)
[2023-11-21] MEDS: MORPHINE SULFATE 2 MG IV ×4 (03:33→20:00)
[2023-11-21 04:07] LABS: Hematocrit 33.5 % (39.0-52.0); Hemoglobin 11.9 g/dL (13.0-18.0); Mean Corp Hgb Conc. 35.5 g/dL (33.0-37.0); Mean Corpuscular Hgb 31.5 pg (27.0-31.0); Mean Corpuscular Volume 88.6 fL (80.0-94.0); Mean Platelet Volume 8.7 fL (7.4-10.4); Platelet Count 193 10^3/uL (130-400); Red Blood Cell Count 3.78 10^6/uL (4.70-6.10); Red Cell Dist. Width 12.6 % (11.5-14.5); White Blood Cell Count 8.2 10^3/uL (4.8-10.8)
[2023-11-21 04:40] LABS: Blood Urea Nitrogen 13 mg/dl (9-20); Calcium 8.7 mg/dl (8.4-10.2); Carbon Dioxide 30 mmol/L (22-30); Chloride 101 mmol/L (98-107); Estimated Creatinine Clearance 103 ml/min; Glucose 102 mg/dl (70-99); Potassium 4.2 mmol/L (3.5-5.1); Sodium 140 mmol/L (135-145); eGFR > 60.00
[2023-11-21] MEDS: D5/0.45%NSS with KCL 20 MEQ 1000 IV ×2 (05:37→19:58)
--- NOTE | 2023-11-21 08:41 | OR.RPT ---
Operative Report
Operative Report
Primary Surgeon: Shavonne
Pre-op Diagnosis: Post-op bleeding
Post-op Diagnosis: Same
Procedure Performed: Exploratory laparotomy
Anesthesia Type: GETA
Specimen / Cultures: None
Estimated Blood Loss: 750cc
Complications: None
Operative Findings: About 300cc old blood and clot in the belly; right lower quadrant retroperitoneum raw surface oozing controlled by oversewing with 2-0 monocryl stratafix; right colon medialized to improve exposure; no discrete bleeding vessel
identified; dwight deployed to the area; 19fr marialuisa drain placed into the RLQ over the area of oozing; ngt confirmed in the stomach; bean placed
Date of Surgery: 11/18/23
Indications: This 63M underwent laparoscopic appendectomy for acute appendicitis and later that evening developed bloody output in his drain and hypotension. Emergent exploratory laparotomy was planned.
Description of procedure: The patient was placed on the operating table in the supine position. General anesthesia was induced. A time-out was completed verifying correct patient, procedure, site, positioning, and special equipment prior to
beginning this procedure. An nasogastric tube was placed. The abdomen was prepped and draped in the usual sterile fashion. A midline incision was made above the umbilicus extending to the pubis with cut cautery and was carried down to the linea alba
with electrocautery. The linea alba was divided and the abdomen entered. About 300cc old blood and clot was removed. The abdomen was irrigated and attention was turned to the right lower quadrant. The staple line and vascular pedicle were inspected
and hemostatic. An area of the pelvic sidewall and retroperitoneum where earlier blunt dissection had taken place was noted to be oozing from raw surface. The area was packed off with moist laps and the remainder of the abdomen was inspected and no
abnormalities were identified. Laps were removed. The incision was extended cephalad and the right colon mobilized off its lateral avascular attachments and medialized to improve exposure. The right hemiabdomen was inspected. No other bleeding areas
were identified. Direct pressure was applied to the bleeding areas in the right lower quadrant for several minutes but the bleeding persisted. The pelvic sidewall was then cauterized with bovie. The retroperitoneum was plicated with superficial
bites of a running monocryl 2-0 barbed suture. The oozing slowed but did not stop completely. Several rounds of direct pressure for several minutes each appeared to slow the oozing but it did not stop completely. Dwight was applied to the area and
the area was observed for several minutes. It appeared to be hemostatic. A 19fr drain was placed into the right lower quadrant and brought out through the lateral port site incision and secures with 2-0 nylon suture. The fascia was closed with #1
PDS stratafix suture and the subcutaneous tissue was irrigated with sterile saline. The skin was closed with claudia. Aquacel dressing applied. The patient tolerated the procedure well and was taken to the postanesthesia care unit in stable
condition.
--- NOTE | 2023-11-21 09:38 | W.PN.GS2 ---
Today's Communication / Plan
-
DC Neumann
Transfer out of the IMU to the regular floor
Will continue to trend labs
Keep NG tube until return of bowel function. Expect ileus.
PRN pain meds
SCDs for DVT ppx
Resume meds.
Assessment / Plan
-
63M POD4 s/p laparoscopic appendectomy c/b post-op hemorrhage, POD3 s/p exploratory laparotomy and control of bleeding from the right lower quadrant retroperitoneum.
AFVSS, no complaints this am other than sore throat from NGT
Drain output appears sanguinous
Hb stable, now 11.9. No transfusions over the weekend.
DC Neumann
Transfer out of the IMU to the regular floor
Will continue to trend labs
Keep NG tube until return of bowel function. Expect ileus.
PRN pain meds
SCDs for DVT ppx
Resume meds.
Time Spent
Total Time Spent with Patient (in minutes): 20
Subjective Data
-
Date of Service: November 21, 2023
Interval Events:
No acute events overnight. Slept well. Pain Controlled. Denies Nausea/Vomiting, -bowel function, but feels like he has to go.
Objective Data
-
Intake and Output
11/20/23 11/21/23 11/22/23
06:59 06:59 06:59
Intake Total 2925 / 2925 2975 / 2975
Output Total 3730 / 3730 5030 / 5030
Balance -805 / -805 -2054 /
Intake:
IV fluids (Total) 2875 / 2875 2875 / 2875
D5/0.45%NSS with KCL 20 MEQ 20 2875 / 2875 2875 / 2875
meq In 1,000 ml @ 125 mls/hr IV
.Q8H [facility] Rx#:[id number]
IV piggybacks 50 / 50 100 / 100
Output:
Drain Output (Total) 170 / 170
Left Abdomen Primo-Cole 170 / 170
Gastrointestinal tube output ( 2350 / 2350 3450 / 3450
Total)
[place] Sump 2350 / 2350 3450 / 3450
Urine, Neumann 1290 / 1290 1410 / 1410
Vital Signs
Temp Pulse Resp BP Pulse Ox
98.1 F 79 12 148/69 93
11/21/23 07:32 11/20/23 23:00 11/20/23 22:00 11/20/23 22:00 11/20/23 23:00
Lab Results
11/21/23 03:50
11/21/23 03:50
Calcium 8.7 mg/dl (8.4-10.2) 11/21/23 03:50
Phosphorus 4.0 mg/dl (2.5-4.5) 11/18/23 05:37
Magnesium 1.8 mg/dl (1.6-2.3) 11/18/23 05:37
Total Bilirubin 0.7 mg/dl (0.2-1.3) 11/17/23 15:40
AST 27 U/L (17-59) 11/17/23 15:40
ALT 28 U/L (0-50) 11/17/23 15:40
Alkaline Phosphatase 60 U/L (38-126) 11/17/23 15:40
Total Protein 7.4 g/dl (6.3-8.2) 11/17/23 15:40
Albumin 4.8 g/dl (3.5-5.0) 11/17/23 15:40
Physical Exam
-
GENERAL/NEURO: Awake, Alert, no distress
CHEST: Unlabored breathing on RA
ABDOMEN: Soft, Non-Tender, Non-Distended, midline dressing with some strikethrough that is stable. JADA is on the bloodier side but minimal output. NG tube with light bilious drainage.
--- NOTE | 2023-11-21 10:24 | PTCARENOTE ---
Addendum entered by Deisy Otto RN 11/21/23 10:25:
prior shift vital signs captured from monitor. unable to verify accuracy
Original Note:
report received, assessment as per work list. orders noted. vikas removed, patient transfer to [facility] surg level of care
[2023-11-21] MEDS: MORPHINE SULFATE 4 MG IV (10:28)
--- NOTE | 2023-11-21 11:52 | PN.CDI ---
CDI
- -
CDI:
Physician Documentation Request
Admit Date: 11/18/23 04:13
Dear General Surgery,
Please review the following and provide your response in the progress notes.
Clinical Indicators:
Pt admitted with Acute appendicitis.
11/16 appendectomy
11/17 General Surgery note: 'Called to bedside for approx 350cc bloody drain output. Pt pale and diaphoretic. HR 90s, SBP 80s. Pt AAOx3.... 2 u PRBC ordered STAT...Plan for emergent RTOR for exploratory laparotomy.'
11/17 Anesthesia note: 'Blood Loss: 750 mL'
11/17 Pt noted to have received total 3 units PRBC's
Laboratory Tests
11/17/23 11/18/23 11/19/23
15:40 00:41 05:12
Hgb 15.2 11.7 L D 11.1 L
Based on the above, could you clarify in the progress notes, the appropriate diagnosis, if significant, that supports the above abnormalities and additional evaluation, monitoring and/or treatment rendered:
Acute blood loss anemia
Other
Use of terms such as suspected, likely, concern for, or probable (associated with a specific diagnosis that is being evaluated, monitored, or treated as if it exists) are acceptable and can be coded in the inpatient setting, when documented at the
time of discharge.
Thank you,
Sabine Winkler RN, BSN
CDI Specialist
Available via [place] [employer]
Please use your independent medical judgment in providing your response.
--- NOTE | 2023-11-21 15:16 | PTCARENOTE ---
patient ambulated in hallway with rolling walker. medicated with morphine per prn order. voided post bean removal in the urinal. back to bed, call shultz in reach
--- NOTE | 2023-11-21 20:00 | RESPNOTE ---
PT is ordered for CPAP for HS use, indicated for SHEILA. PT refused this therapy and has been refusing since ordered. Machine was pulled, will get order d/c ed.
[2023-11-21] MEDS: PAXIL PO (21:19)
--- NOTE | 2023-11-21 22:45 | TRANSFER ---
Pt transferred to [address] [place] [address] bed 2115-02. Pt tsx via hospital bed w/ personal belongings. Report given to [address] [place] [address] RN, FRANCOISE.
[2023-11-22] MEDS: ZOSYN 50 IV ×5 (00:15→23:19)
--- NOTE | 2023-11-22 01:40 | PTCARENOTE ---
Pt transferred at 2300 from ICU to . VSS. head to toe assessment complete. IVF infusing, NGT to low intermitted suction. oriented to room and call shultz. bed locked and in lowest position.
[2023-11-22] MEDS: D5/0.45%NSS with KCL 20 MEQ 1000 IV ×2 (03:35→15:45)
[2023-11-22 06:53] LABS: % Basophils 0.4 % (0-2); % Eosinophils 3.3 % (0-6); % Immature Granulocytes 0.7 % (0-0.5); % Lymphocytes 20.7 % (20.5-51.1); % Monocytes 11.4 % (1.7-9.3); % Neutrophils 63.5 % (42.2-75.2); Absolute Eosinophils 0.2 10^3/uL (0-0.7); Absolute Immature Granulocytes 0.1 10^3/uL (0-0.05); Absolute Lymphocytes 1.5 10^3/uL (1.2-3.4); Absolute Monocytes 0.8 10^3/uL (0.1-0.6); Absolute Neutrophils 4.6 10^3/uL (1.4-6.5); Hematocrit 32.7 % (39.0-52.0); Hemoglobin 11.1 g/dL (13.0-18.0); Mean Corp Hgb Conc. 33.9 g/dL (33.0-37.0); Mean Corpuscular Hgb 29.8 pg (27.0-31.0); Mean Corpuscular Volume 87.7 fL (80.0-94.0); Nucleated Red Blood Cells % 0 % (-); Platelet Count 236 10^3/uL (130-400); Red Blood Cell Count 3.73 10^6/uL (4.70-6.10); Red Cell Dist. Width 12.5 % (11.5-14.5); White Blood Cell Count 7.3 10^3/uL (4.8-10.8)
[2023-11-22 07:02] LABS: Blood Urea Nitrogen 14 mg/dl (9-20); Calcium 8.8 mg/dl (8.4-10.2); Carbon Dioxide 30 mmol/L (22-30); Chloride 100 mmol/L (98-107); Estimated Creatinine Clearance 102 ml/min; Glucose 103 mg/dl (70-99); Magnesium 2.2 mg/dl (1.6-2.3); Potassium 4.4 mmol/L (3.5-5.1); Sodium 139 mmol/L (135-145); eGFR > 60.00
--- NOTE | 2023-11-22 07:25 | W.PN.GS2 ---
Today's Communication / Plan
-
-- NGT clamp trial for the AM, will assess removal this afternoon
-- Pain control: Tylenol, Toradol, IV Dilaudid
-- Decrease IVF
-- OOB/ambulate
-- DVT: Lovenox
-- Resume home meds with NGT removal
Assessment / Plan
-
63M POD5 s/p laparoscopic appendectomy c/b post-op hemorrhage, POD4 s/p exploratory laparotomy and control of bleeding from the right lower quadrant retroperitoneum.
AFVSS, no complaints this am other than sore throat from NGT
Drain output appears sanguinous
Hb stable. No transfusions over the weekend.
-- NPO, IVF
-- NGT clamp trial for the AM, will assess removal this afternoon
-- Pain control: Tylenol, Toradol, IV Dilaudid
-- Decrease IVF
-- OOB/ambulate
-- Maintain JADA
-- DVT: Lovenox
-- Resume home meds with NGT removal
Subjective Data
-
Date of Service: November 22, 2023
No major complaints. Denies nausea or vomiting. Reports passing flatus, no BM. Minimal ambulation. Voiding large amounts of urine. No dizziness or lightheadedness. No chest pain or shortness of breath.
Objective Data
-
Intake and Output
11/21/23 11/22/23 11/23/23
06:59 06:59 06:59
Intake Total 2975 / 3100 3200 / 3200
Output Total 5030 / 5030 2805 / 2805
Balance -2054 / -1929 395 / 395
Intake:
IV fluids (Total) 2875 / 3000 3000 / 3000
D5/0.45%NSS with KCL 20 MEQ 20 2875 / 3000 2000 / 1999
meq In 1,000 ml @ 125 mls/hr IV
.Q8H [facility] Rx#:[id number]
IV piggybacks 100 / 100 200 / 200
Output:
Drain Output (Total) 170 / 170 95 / 95
Left 35 / 35
Left Abdomen Pirmo-Cole 170 / 170 60 / 60
Gastrointestinal tube output ( 3450 / 3450 1075 / 1075
Total)
[place] Sump 3450 / 3450 1075 / 1075
Urine, Neumann 1410 / 1410 400 / 400
Urine, Voided 1235 / 1235
Vital Signs
Temp Pulse Resp BP Pulse Ox
98.5 F 93 15 151/98 99
11/21/23 23:10 11/21/23 23:10 11/21/23 23:10 11/21/23 23:10 11/22/23 01:36
Lab Results
11/22/23 04:58
11/22/23 04:58
Calcium 8.8 mg/dl (8.4-10.2) 11/22/23 04:58
Phosphorus 4.0 mg/dl (2.5-4.5) 11/18/23 05:37
Magnesium 2.2 mg/dl (1.6-2.3) 11/22/23 04:58
Total Bilirubin 0.7 mg/dl (0.2-1.3) 11/17/23 15:40
AST 27 U/L (17-59) 11/17/23 15:40
ALT 28 U/L (0-50) 11/17/23 15:40
Alkaline Phosphatase 60 U/L (38-126) 11/17/23 15:40
Total Protein 7.4 g/dl (6.3-8.2) 11/17/23 15:40
Albumin 4.8 g/dl (3.5-5.0) 11/17/23 15:40
Physical Exam
-
Gen: NAD
HEENT: non-bilious output
Abd: soft, mild tenderness, mild distension, non-peritoneal, midline with shadowing, JADA sanguinous
[2023-11-22 07:47] VITALS: BP 166/89
[2023-11-22] MEDS: D5/0.45%NSS with KCL 20 MEQ IV (09:03)
--- NOTE | 2023-11-22 14:50 | CM ---
Reviewed the chart notes and spoke with the patient at the bedside. NGT removed today. Continues with JADA drain. Patient ambulating ad calixto. CM continues to be available to patient/family and is monitoring medical plan for needs at discharge.
Plan: Discharge to home when medically stable. If JADA drain removed prior to d/c no needs anticipated.
[2023-11-22 15:11] VITALS: BP 151/83
[2023-11-22] MEDS: LOVENOX 40 MG SC (17:16)
[2023-11-22] MEDS: PAXIL 30 MG PO (21:11)
[2023-11-22 23:35] VITALS: BP 135/81
[2023-11-23] MEDS: ZOSYN 50 IV ×3 (05:00→17:13)
[2023-11-23] MEDS: D5/0.45%NSS with KCL 20 MEQ 1000 IV (05:38)
[2023-11-23 06:02] LABS: % Basophils 0.5 % (0-2); % Eosinophils 4.4 % (0-6); % Immature Granulocytes 0.6 % (0-0.5); % Lymphocytes 21.1 % (20.5-51.1); % Neutrophils 61.4 % (42.2-75.2); Absolute Eosinophils 0.3 10^3/uL (0-0.7); Absolute Immature Granulocytes 0.1 10^3/uL (0-0.05); Absolute Lymphocytes 1.6 10^3/uL (1.2-3.4); Absolute Monocytes 0.9 10^3/uL (0.1-0.6); Absolute Neutrophils 4.8 10^3/uL (1.4-6.5); Hematocrit 34.6 % (39.0-52.0); Hemoglobin 12.1 g/dL (13.0-18.0); Mean Corpuscular Hgb 31.3 pg (27.0-31.0); Mean Corpuscular Volume 89.6 fL (80.0-94.0); Nucleated Red Blood Cells % 0 % (-); Platelet Count 243 10^3/uL (130-400); Red Blood Cell Count 3.86 10^6/uL (4.70-6.10); Red Cell Dist. Width 12.6 % (11.5-14.5); White Blood Cell Count 7.8 10^3/uL (4.8-10.8)
[2023-11-23 06:22] LABS: Blood Urea Nitrogen 16 mg/dl (9-20); Calcium 9.3 mg/dl (8.4-10.2); Carbon Dioxide 28 mmol/L (22-30); Chloride 102 mmol/L (98-107); Estimated Creatinine Clearance 84 ml/min; Glucose 102 mg/dl (70-99); Magnesium 2.4 mg/dl (1.6-2.3); Potassium 4.6 mmol/L (3.5-5.1); Sodium 140 mmol/L (135-145); eGFR > 60.00
[2023-11-23 07:35] VITALS: BP 163/89
--- NOTE | 2023-11-23 14:43 | W.PN.GS2 ---
Today's Communication / Plan
-
Home meds
ADAT
Assessment / Plan
-
63M POD6 s/p laparoscopic appendectomy c/b post-op hemorrhage, POD5 s/p exploratory laparotomy and control of bleeding from the right lower quadrant retroperitoneum.
AFVSS, no complaints this am other than sore throat from NGT
Drain output appears to be clearing, more serosang today
Hb stable.
-- ADAT to low res, advised to go slow
-- Pain control: Tylenol, Toradol, IV Dilaudid
-- DC IVF
-- OOB/ambulate
-- Maintain JADA while in house
-- DVT: Lovenox
-- Resume home meds
Subjective Data
-
Date of Service: November 23, 2023
AFVSS, feeling much better, passing flatus and BMs, pain well controlled, denies n/v since ngt dc'ed
Objective Data
-
Intake and Output
11/22/23 11/23/23 11/24/23
06:59 06:59 06:59
Intake Total 3200 / 3200 2405 / 2405 50 / 50
Output Total 2805 / 2805
Balance 395 / 395 2310 / 2310 50 / 50
Intake:
Oral fluids 480 / 480
IV fluids (Total) 3000 / 3000 1725 / 1725
D5/0.45%NSS with KCL 20 MEQ 20 1999 / 1999
meq In 1,000 ml @ 75 mls/hr IV
.[id number] [facility] Rx#:[id number]
IV piggybacks 200 / 200 200 / 200 50 / 50
Output:
Drain Output (Total)
Left 35 / 35
Left Abdomen Primo-Cole 60 / 60
Gastrointestinal tube output ( 1075 / 1075
Total)
Terry Sump 107 / 1075
Urine, Neumann 400 / 400
Urine, Voided 1235 / 1235
Other:
Number of approximated MODERATE 4
amounts of urine
Number of approximated LARGE 3
amounts of urine
Vital Signs
Temp Pulse Resp BP Pulse Ox
97.8 F 90 16 163/89 97
11/23/23 07:35 11/23/23 07:35 11/23/23 07:35 11/23/23 07:35 11/23/23 07:35
Lab Results
11/23/23 05:22
11/23/23 05:22
Calcium 9.3 mg/dl (8.4-10.2) 11/23/23 05:22
Phosphorus 4.0 mg/dl (2.5-4.5) 11/18/23 05:37
Magnesium 2.4 mg/dl (1.6-2.3) H 11/23/23 05:22
Total Bilirubin 0.7 mg/dl (0.2-1.3) 11/17/23 15:40
AST 27 U/L (17-59) 11/17/23 15:40
ALT 28 U/L (0-50) 11/17/23 15:40
Alkaline Phosphatase 60 U/L (38-126) 11/17/23 15:40
Total Protein 7.4 g/dl (6.3-8.2) 11/17/23 15:40
Albumin 4.8 g/dl (3.5-5.0) 11/17/23 15:40
Physical Exam
-
Gen: NAD
Abd: soft, approp ttp, midline aqucel OK, drain with ss fluid
[2023-11-23 16:35] VITALS: BP 153/91
[2023-11-23] MEDS: PAXIL 30 MG PO (21:34)
[2023-11-23 23:43] VITALS: BP 146/87
[2023-11-24] MEDS: ZOSYN 50 IV ×3 (00:43→11:19)
--- NOTE | 2023-11-24 02:53 | PTCARENOTE ---
2030-JADA drain site noted w large s/s drainage. Cleansed area w saline soaked gauze, then applied new split gauze & tape. Assessment ongoing.
[2023-11-24 07:21] LABS: Blood Urea Nitrogen 20 mg/dl (9-20); Calcium 8.8 mg/dl (8.4-10.2); Carbon Dioxide 24 mmol/L (22-30); Chloride 103 mmol/L (98-107); Estimated Creatinine Clearance 84 ml/min; Glucose 101 mg/dl (70-99); Magnesium 2.2 mg/dl (1.6-2.3); Potassium 4.7 mmol/L (3.5-5.1); Sodium 139 mmol/L (135-145); eGFR > 60.00
[2023-11-24] MEDS: NORVASC 5 MG PO (07:47)
[2023-11-24] MEDS: CRESTOR 20 MG PO (07:47)
[2023-11-24] MEDS: ZESTRIL 40 MG PO (07:47)
[2023-11-24 07:56] VITALS: BP 142/77
[2023-11-24 09:01] LABS: % Basophils 0.4 % (0-2); % Eosinophils 3.7 % (0-6); % Immature Granulocytes 0.8 % (0-0.5); % Lymphocytes 16.7 % (20.5-51.1); % Monocytes 11.2 % (1.7-9.3); % Neutrophils 67.2 % (42.2-75.2); Absolute Eosinophils 0.3 10^3/uL (0-0.7); Absolute Immature Granulocytes 0.1 10^3/uL (0-0.05); Absolute Lymphocytes 1.4 10^3/uL (1.2-3.4); Absolute Neutrophils 5.7 10^3/uL (1.4-6.5); Hematocrit 33.1 % (39.0-52.0); Hemoglobin 11.6 g/dL (13.0-18.0); Mean Corpuscular Hgb 30.8 pg (27.0-31.0); Mean Corpuscular Volume 87.8 fL (80.0-94.0); Mean Platelet Volume 9.1 fL (7.4-10.4); Nucleated Red Blood Cells % 0 % (-); Platelet Count 278 10^3/uL (130-400); Red Blood Cell Count 3.77 10^6/uL (4.70-6.10); Red Cell Dist. Width 12.8 % (11.5-14.5); White Blood Cell Count 8.5 10^3/uL (4.8-10.8)
--- NOTE | 2023-11-24 10:16 | CM ---
Reviewed the chart notes. Patient on low residual diet. JADA drain remains. Ambulates ad calixto. CM continues to be available to patient/family and is monitoring medical plan for needs at discharge.
Plan: Discharge to home when medically stable. No anticipated needs.
--- NOTE | 2023-11-24 15:26 | W.PN.GS2 ---
Today's Communication / Plan
-
`
Assessment / Plan
-
63M POD7 s/p laparoscopic appendectomy c/b post-op hemorrhage, POD6 s/p exploratory laparotomy and control of bleeding from the right lower quadrant retroperitoneum.
AFVSS
doing well
-- JADA removed and surgical site dressing
-- d/c home with 5 day course of Augmentin for appendicitis
Subjective Data
-
Date of Service: November 24, 2023
pt seen and examined, at bedside
offers not complaints
eager for discharge
carson LRD
+fl and BM
no pain in days
Objective Data
-
Intake and Output
11/23/23 11/24/23 11/25/23
06:59 06:59 06:59
Intake Total 2405 / 2405 1280 / 1280
Output Total / 215 / 215
Balance 2310 / 2310 1065 / 1065
Intake:
Oral fluids 480 / 480 480 / 480
IV fluids (Total) 1725 / 1725 650 / 650
IV piggybacks 200 / 200 150 / 150
Output:
Drain Output (Total) / 215 / 215
Left Abdomen Primo-Cole 215 / 215
Other:
Number of approximated MODERATE 4 1
amounts of urine
Number of approximated LARGE 3
amounts of urine
Vital Signs
Temp Pulse Resp BP Pulse Ox
98.8 F 85 19 142/77 98
11/24/23 07:56 11/24/23 07:56 11/24/23 07:56 11/24/23 07:56 11/24/23 07:56
Lab Results
11/24/23 08:29
11/24/23 04:53
Calcium 8.8 mg/dl (8.4-10.2) 11/24/23 04:53
Phosphorus 4.0 mg/dl (2.5-4.5) 11/18/23 05:37
Magnesium 2.2 mg/dl (1.6-2.3) 11/24/23 04:53
Total Bilirubin 0.7 mg/dl (0.2-1.3) 11/17/23 15:40
AST 27 U/L (17-59) 11/17/23 15:40
ALT 28 U/L (0-50) 11/17/23 15:40
Alkaline Phosphatase 60 U/L (38-126) 11/17/23 15:40
Total Protein 7.4 g/dl (6.3-8.2) 11/17/23 15:40
Albumin 4.8 g/dl (3.5-5.0) 11/17/23 15:40
Physical Exam
-
NAD AAOx3
ABD: soft, ND, NTTP
incision with claudia, no erythema, no drainage, no open wounds
JADA with light SSF
--- NOTE | 2023-11-24 15:33 | W.DS.TRANS ---
DC Summary - Molder Inflated Ball
-
Discharge Instructions:
Discharge Diagnosis/Procedures acute appendicitis; post op bleeding/hematoma;
lap appy, ex lap for hematoma
Diet As tolerated,Regular
Additional Diets smaller meals initially post op as abdominal
bloating and distention are common for the first
few weeks post op
Activity No strenuous activity
Additional Activity no lifting over 15-20lbs for 6 weeks post op.
routine daily activities are all okay as
tolerated.
Driving Restrictions no driving for a few days
Bathing Restrictions OK to Shower
Wound Care may leave incision open to air or cover with dry
gauze. cover old drain site with band aide or
gauze until dry then leave open to air
Instructions:
Stand-Alone Forms:
Changes to Home Medications: Yes
Discharge Medications:
DC Medications w/original date entered in [facility] Vitamin Pack 1 dose PO DAILY Supplement 11/17/23
amlodipine 5 mg tablet 5 mg PO DAILY Blood Pressure 11/17/23
hydrochlorothiazide 25 mg tablet 25 mg PO DAILY Blood Pressure 11/17/23
lisinopril 40 mg tablet 40 mg PO DAILY Blood Pressure 11/17/23
paroxetine HCl 30 mg tablet 30 mg PO HS Mental Health/Anxiety 11/17/23
rosuvastatin 20 mg tablet 20 mg PO DAILY High Cholesterol 11/17/23
tirzepatide (weight loss) 12.5 mg/0.5 mL subcutaneous pen injector (Zepbound) 12.5 mg SC MARSH WEIGHT LOSS 11/17/23
acetaminophen 500 mg tablet (Tylenol Extra Strength) 1,000 mg (2 x 500 mg) PO Q6HPRN PRN mild pain #1 tab 11/24/23
amoxicillin 875 mg-potassium clavulanate 125 mg tablet 1 tab PO Q12 antibiotic #10 tabs 11/24/23
Home Medication Changes
hold tirzepatide for 1-2 weeks
Pending Results: No
[2023-11-24 15:35] VITALS: BP 135/73
== END 2023-11-24 15:47 | disposition home or self-care (01) | DRG 398 ==
LOC: 2 SOUTH 14:46
PROVIDERS: Nurse Practitioner; Nurse Practitioner Family; Physician Assistant; ADMITTING PHYSICIAN Surgery; EMERGENCY PHYSICIAN Student in an Organized Health Care Education/Training Program; FAMILY PHYSICIAN Nurse Practitioner Family
PROC: 0DTJ4ZZ Resection of Appendix, Percutaneous Endoscopic Approach (ICD-10-PCS; 2023-11-17)
PROC: 30233N1 Transfusion of Nonautologous Red Blood Cells into Peripheral Vein, Percutaneous Approach (ICD-10-PCS; 2023-11-18)
PROC: 0W9H00Z Drainage of Retroperitoneum with Drainage Device, Open Approach (ICD-10-PCS; 2023-11-21)
PROC: 0W3H0ZZ Control Bleeding in Retroperitoneum, Open Approach (ICD-10-PCS; 2023-11-21)
DX: K35.80 Unspecified acute appendicitis (principal); D62 Acute posthemorrhagic anemia; K91.840 Postprocedural hemorrhage of a digestive system organ or structure following a digestive system procedure; I10 Essential (primary) hypertension; K38.1 Appendicular concretions; I95.81 Postprocedural hypotension; F41.9 Anxiety disorder, unspecified; K59.03 Drug induced constipation; Z79.899 Other long term (current) drug therapy
CPT/HCPCS: 88304; 74177; 80048; 80053; 81003; 82962; 83690; 83735; 84100; 85025; 85027; 85610; 85730; 86850; 86900; 86901; 86920; 94660; 96361; 96365; 96375; 99285; C1776; P9016; Q9967

== ENCOUNTER 2024-01-26 20:26 | Emergency (ER) | payer OTHER, SELFPAY ==
[2024-01-26 20:27] VITALS: BP 180/106
[2024-01-26 20:39] VITALS: BP 186/99
[2024-01-26] MEDS: ZOFRAN 4 MG IV (20:58)
[2024-01-26] MEDS: DILAUDID 1 MG IV ×2 (20:58→21:50)
[2024-01-26] MEDS: OMNIPAQUE 50 ML PO (20:59)
[2024-01-26 21:00] VITALS: BP 182/98
[2024-01-26 21:04] LABS: % Basophils 0.4 % (0-2); % Eosinophils 3.1 % (0-6); % Immature Granulocytes 0.6 % (0-0.5); % Monocytes 9.1 % (1.7-9.3); % Neutrophils 62.8 % (42.2-75.2); Absolute Eosinophils 0.3 10^3/uL (0-0.7); Absolute Immature Granulocytes 0.1 10^3/uL (0-0.05); Absolute Lymphocytes 2.6 10^3/uL (1.2-3.4); Absolute Neutrophils 6.8 10^3/uL (1.4-6.5); Hemoglobin 15.1 g/dL (13.0-18.0); Mean Corp Hgb Conc. 34.3 g/dL (33.0-37.0); Mean Corpuscular Hgb 29.4 pg (27.0-31.0); Mean Corpuscular Volume 85.8 fL (80.0-94.0); Mean Platelet Volume 8.7 fL (7.4-10.4); Nucleated Red Blood Cells % 0 % (-); Platelet Count 254 10^3/uL (130-400); Red Blood Cell Count 5.13 10^6/uL (4.70-6.10); White Blood Cell Count 10.8 10^3/uL (4.8-10.8)
[2024-01-26 21:23] LABS: ALT (SGPT) 24 U/L (0-50); AST (SGOT) 23 U/L (17-59); Albumin 4.5 g/dl (3.5-5.0); Alkaline Phosphatase 53 U/L (38-126); Blood Urea Nitrogen 25 mg/dl (9-20); Calcium 9.7 mg/dl (8.4-10.2); Carbon Dioxide 27 mmol/L (22-30); Chloride 103 mmol/L (98-107); Glucose 113 mg/dl (70-99); Potassium 3.9 mmol/L (3.5-5.1); Sodium 142 mmol/L (135-145); Total Bilirubin 0.6 mg/dl (0.2-1.3); Total Protein 7.1 g/dl (6.3-8.2); eGFR > 60.00
[2024-01-26 21:25] LABS: Lipase 130 U/L (23-300)
[2024-01-26 21:56] VITALS: BMI 30.3
[2024-01-26 22:44] VITALS: BP 192/99
[2024-01-26 22:46] VITALS: BP 192/99
[2024-01-26 22:54] LABS: Urine Albumin Negative (Neg - Trace); Urine Bilirubin Negative (Negative); Urine Character Clear (Clear); Urine Color Yellow; Urine Glucose Negative (Negative); Urine Ketone 1+ (Negative); Urine Leukocyte Negative (Negative); Urine Nitrite Negative (Negative); Urine Occult Blood Negative (Negative); Urine Urobilinogen Negative (Neg - 1+)
--- NOTE | 2024-01-27 00:35 | ED.GENMED ---
History of Present Illness
General
Chief Complaint: Abdominal Pain
Source: patient and spouse
Time Seen by Provider: 01/26/24 20:41
History of Present Illness
History of Present Illness:
64-year-old male presents with upper abdominal pain. Additional history given by his spouse. Patient reports that he began with abdominal pain shortly after eating. Patient spouse states he was in severe pain. Also reports nausea but no
vomiting. No fevers. Has a history of appendectomy but also needed a exploratory laparotomy due to bleeding after the appendectomy. Denies fevers. No back pain. No chest pain.
Past History
Past History
ED Past Medical History: Psychiatric (Anxiety)
ED Past Surgical History: Appendectomy and Other (Exploratory laparotomy secondary to bleeding postoperatively from appendectomy)
Social History
Tobacco: Non-smoker
Alcohol: None
Drug: None
Personal:
Living: with family
Employment: Employed
Family History
Family History: Other (Noncontributory)
Phy Exam
Physical Exam
Physical Exam:
CONSTITUTIONAL Patient alert and oriented to person, place and time. Moderate pain distress. Vital signs reviewed.
HEAD atraumatic, normocephalic.
EYES eyelids normal to inspection, Extraocular muscles intact, Conjunctiva normal, Sclera normal.
NECK normal range of motion, Trachea midline, no jugular venous distention.
RESPIRATORY CHEST No respiratory distress noted, Chest expansion equal,
ABDOMEN moderate to severe right upper quadrant tenderness, mild epigastric tenderness, bowel sounds normal, no distention.
BACK normal inspection, no obvious deformities
UPPER EXTREMITY range of motion normal, Motor strength normal, no cyanosis, no edema.
LOWER EXTREMITY range of motion normal, Motor strength normal, no cyanosis, no edema.
NEURO Speech normal, No focal motor deficits, [place] coma scale 15, Memory normal, Cranial Nerves intact to screening exam.
SKIN skin warm, dry, and normal in color.
Course
Orders/Labs/Results
Orders:
Orders
01/26/24 20:30
Electrocardiogram (*1) Urgent
Reason for Study: Abdominal Pain
EKG- Treatment ONCE
01/26/24 20:46
HYDROmorphone [Dilaudid] 1 mg IV NOW STA
Ondansetron Injectable [Zofran] 4 mg IV NOW STA
01/26/24 20:48
Iohexol [Omnipaque] 50 ml .ROUTE .STK-MED ONE
01/26/24 20:52
Complete Blood Count/With Diff Urgent
Comprehensive Metabolic Panel Urgent
Lipase Urgent
Iohexol [Omnipaque] See Protocol PO NOW STA
01/26/24 21:13
CT Abd/pel W Iv And Oral Contr Urgent
Comment:
Reason For Exam: upper abd pain, h/o ex lap, h/o appendectomy
01/26/24 21:45
HYDROmorphone [Dilaudid] 1 mg IV NOW STA
01/26/24 22:46
Urinalysis Reflex To Culture Urgent
Date Specimen was Collected: 01/26/24
Time Specimen was Collected: 20:44
01/27/24 00:00
US Abdomen Complete/Upper Urgent
Reason For Exam: RUQ Pain, gallstones by CT
Abnormal Lab Results
01/26/24 01/26/24
20:52 22:46
Abs Immat Gran (auto) 0.1 H 10^3/uL
(0-0.05)
Absolute Neuts (auto) 6.8 H 10^3/uL
(1.4-6.5)
Absolute Monos (auto) 1.0 H 10^3/uL
(0.1-0.6)
Immature Gran % 0.6 H %
(0-0.5)
BUN 25 H mg/dl
(9-20)
Glucose 113 H mg/dl
(70-99)
Urine Ketones 1+ A
(Negative)
01/26/24 20:52
01/26/24 20:52
Vital Signs
Initial and Last Documented VS:
Initial Vital Signs
Temp Pulse Resp BP Pulse Ox
97.7 F 72 18 180/106 100
01/26/24 20:27 01/26/24 20:27 01/26/24 20:27 01/26/24 20:27 01/26/24 20:27
Last Documented Vital Signs
Temp Pulse Resp BP Pulse Ox
97.7 F 106 17 143/93 96
01/26/24 20:27 01/27/24 00:43 01/26/24 21:30 01/27/24 00:43 01/27/24 00:43
MDM/Problems Addressed
Differential Diagnosis Includes:
AAA, small bowel obstruction, cholelithiasis, pancreatitis, peptic ulcer disease, perforated viscus
MDM/Problems Addressed:
Cholelithiasis
*Radiology
Radiology exam reviewed: radiology read reviewed
*Pulse Oximetry
Patient hypoxic: no
*Critical Care Note
Total Time (30-74mins, 75-104mins- exclusive of procedures): Not Applicable
Data Reviewed
Source: patient and spouse
Prescriptions/Medications Considered But Not Given:
Consider antibiotics with CT does not show acute cholecystitis. Ultrasound pending
Patient Management
Discussion with other providers: Secondary Market Manager (General surgery) and Radiologist (Recommends ultrasound)
Escalation/DeEscalation of care consider admission/obs:
64-year-old male who presents with right upper quadrant abdominal pain. White count normal but ultrasound is concerning for pericholecystic fluid. Case discussed with surgery does recommend admission. This was discussed with the patient and the
patient's . Patient at this time does not want to be admitted or stay for surgical evaluation. He is aware of the risks and the possible diagnosis. He states his pain has resolved completely and he feels 'wonderful'. He does agree to return
immediately for any nausea, vomiting, fevers, return of pain. This was relayed to surgery
ED Attending Note
-
Portions of this chart may have been created with voice recognition software.� Occasional wrong word or��sound alike� substitutions may have occurred due to the inherent limitations of voice recognition software.
Discharge Plan
Departure
Patient Disposition: Home (Routine Discharge)
Date of Disposition: 01/27/24
Time of Disposition: 01:41
Patient with high blood pressure during this ER visit?: Yes
Discharge Problem:
Cholelithiasis, possible cholecystitis
Instructions: Gallstones (DC), BLOOD PRESSURE
Prescriptions:
No Action
amlodipine 5 mg Tablet
5 mg PO DAILY
Rx Instructions:
ran out - has not been taking
paroxetine HCl 30 mg Tablet
30 mg PO HS
hydrochlorothiazide 25 mg Tablet
25 mg PO DAILY
lisinopril 40 mg Tablet
40 mg PO DAILY
rosuvastatin 20 mg Tablet
20 mg PO DAILY
Zepbound 12.5 mg/0.5 mL Pen Injector
12.5 mg SC MARSH
Referrals:
Satinder Joseph CRNP [Family Provider] -
Manan Marvin MD [Active] -
Activity Restrictions/Additional Instructions:
It is imperative that you return immediately for any return of pain, fever, nausea, vomiting or any concerns at all. It is also important that you as soon as possible. Please avoid fatty foods.
Interventions
Interventions:
*Risk Screen - Suicide Last Done: 01/26/24 20:27
*General Assessment Last Done: 01/26/24 20:27
*Neglect/Abuse Screening Last Done: 01/26/24 21:09
ED- Fall Risk Assessment Last Done: 01/26/24 21:09
*ED COVID-19 Vaccine History Last Done: 01/26/24 20:27
YK-Iumnoo-Fmrpdcmzrx Assessment Last Done: 01/26/24 21:03
Discharge Date and Time
Print Language: ALBANIAN
[2024-01-27 00:40] VITALS: BP 143/93
[2024-01-27 00:43] VITALS: BP 143/93
[2024-01-27 01:42] VITALS: BP 160/98
== END 2024-01-27 01:50 | disposition home or self-care (01) ==
LOC: EMR 20:26
PROVIDERS: EMERGENCY PHYSICIAN Emergency Medicine; FAMILY PHYSICIAN Nurse Practitioner Family
DX: K80.20 Calculus of gallbladder without cholecystitis without obstruction (principal); Z90.49 Acquired absence of other specified parts of digestive tract
CPT/HCPCS: 96374; 96375; 96376; 99284; 74177; 76700; 80053; 81003; 83690; 85025; 93005; Q9967

== ENCOUNTER → 2024-02-03 17:55 | Emergency (ER) | payer OTHER, SELFPAY ==
[2024-02-03 17:56] VITALS: BP 185/103
--- NOTE | 2024-02-03 18:05 | ED.GENMED ---
ED Provider Triage
-
Patient seen by provider in Triage?: Seen in Triage
Attestation: A medical screening examination has been initiated by a qualified medical provider. Based on the assessment performed at this time, it has been determined that an emergent medical condition may exist and the patient has been informed
that further medical evaluation and possible additional diagnostic testing may be needed.
HPI: 64yoM here with upper abd pain x 1 hour. Seen in ED 1 week ago for similar complaints. US showed cholelithiasis and findings suspicious for cholecystitis. Is scheduled to see Dr. Marvin next week.
GENERAL: Alert , in no apparent distress
EYE: No visual abnormalities.
NECK: Trachea midline
ENT: No visible abnormalities.
LUNGS: No acute respiratory distress
NEUROLOGICAL: Alert and oriented
SKIN: Skin intact. No visible changes.
MUSCULOSKELETAL: Moving extremities normally
PSYCH: Normal and appropriate interaction.
This is a medical evaluation conducted in person to initiate diagnostic evaluation and provide initial therapeutics. Please see further documentation by the treating clinician.
Abdominal labs and upper abdominal ultrasound ordered.
History of Present Illness
General
Chief Complaint: Abdominal Pain
Source: patient and records
Exam Limitations: none
Time Seen by Provider: 02/03/24 18:53
History of Present Illness
History of Present Illness:
64yoM with a history of hypertension and hyperlipidemia presenting for evaluation of abdominal pain. Patient reports severe pain in his upper abdomen that began about 1 hour prior to arrival. He was seen in the ED 1 week ago and was diagnosed with
gallstones. There was questionable evidence of cholecystitis on ultrasound at that time. He is scheduled to see general surgery in the office next week. After evaluation in triage, patient came up to the triage nurse to report that his pain has
completely resolved. Patient now requesting to be discharged without the ultrasound. Patient reports zero pain. He denies any fevers, chills, nausea, vomiting, chest pain.
Past History
Past History
ED Past Medical History: Psychiatric (Anxiety)
ED Past Surgical History: Appendectomy and Other (Exploratory laparotomy secondary to bleeding postoperatively from appendectomy)
Social History
Tobacco: Non-smoker
Alcohol: None
Drug: None
Personal:
Living: with family
Employment: Employed
Family History
Family History: Other (Noncontributory)
Phy Exam
General Physical Exam
General Presentation: well appearing and no apparent distress
General age: appears stated age
General Skin: warm and dry
General Habitus: normal
General Mental: alert
ENT Exam
ENT Exam: normocephalic
Pulmonary Exam
Pulmonary Exam: no respiratory distress
Gastrointestinal Exam
Gastrointestinal Exam: non tender, soft, non distended and other (Abdomen soft, non-distended, non-tender. Negative Raymond's sign.)
Neurological Exam
Neurological Exam: alert
Tasha Coma Scale
Eye Opening: Spontaneous
Verbal Response: Oriented
Motor Response: Obeys Commands
GCS Total Score: 15
Skin Exam
Skin Exam: normal color and warm/dry
Psychiatric Exam
Psychiatric Exam: normal mood/affect
Course
Orders/Labs/Results
Orders:
Orders
02/03/24 18:03
Complete Blood Count/With Diff Urgent
Comprehensive Metabolic Panel Urgent
Lipase Urgent
Abnormal Lab Results
02/03/24
18:03
Absolute Monos (auto) 0.9 H 10^3/uL
(0.1-0.6)
Monocytes % 10.7 H %
(1.7-9.3)
BUN 23 H mg/dl
(9-20)
02/03/24 18:03
02/03/24 18:03
Vital Signs
Initial and Last Documented VS:
Initial Vital Signs
Temp Pulse Resp BP Pulse Ox
97.4 F 71 20 185/103 99
02/03/24 17:56 02/03/24 17:56 02/03/24 17:56 02/03/24 17:56 02/03/24 17:56
Last Documented Vital Signs
Temp Pulse Resp BP Pulse Ox
97.4 F 71 20 185/103 99
02/03/24 17:56 02/03/24 17:56 02/03/24 17:56 02/03/24 17:56 02/03/24 17:56
MDM/Problems Addressed
Differential Diagnosis Includes:
64yoM here with upper abd pain x 1 hour. Seen in ED 1 week ago for similar complaints and diagnosed with gallstones. No f/c. No n/v. No CP. He is hypertensive with otherwise normal vital signs. Differential diagnosis includes but is not limited
to: Biliary colic, cholecystitis, choledocholithiasis, pancreatitis, PUD
Abdominal labs and ultrasound ordered in triage. Labs unremarkable including normal white count, LFTs, and lipase. On reassessment, patient is now stating that his pain has completely resolved. He is requesting to go home and declines imaging at
this time. Abdominal exam is benign. He has an appointment scheduled with general surgery next week. Strict ED return precautions discussed including worsening pain, fevers, jaundice. He was discharged in stable condition.
*Critical Care Note
Total Time (30-74mins, 75-104mins- exclusive of procedures): Not Applicable
ED Attending Note
-
Portions of this chart may have been created with voice recognition software.� Occasional wrong word or��sound alike� substitutions may have occurred due to the inherent limitations of voice recognition software.
Discharge Plan
Departure
Patient Disposition: Against Medical Advice
Date of Disposition: 02/03/24
Time of Disposition: 18:53
Discharge Problem:
Biliary colic
Instructions: Low-fat diet, Gallstones - Discharge instructions
Prescriptions:
No Action
amlodipine 5 mg Tablet
5 mg PO DAILY
Rx Instructions:
ran out - has not been taking
paroxetine HCl 30 mg Tablet
30 mg PO HS
hydrochlorothiazide 25 mg Tablet
25 mg PO DAILY
lisinopril 40 mg Tablet
40 mg PO DAILY
rosuvastatin 20 mg Tablet
20 mg PO DAILY
Zepbound 12.5 mg/0.5 mL Pen Injector
12.5 mg SC MARSH
Activity Restrictions/Additional Instructions:
Eat a low fat diet.
Please follow-up with Dr. Marvin next week as previously scheduled.
Return to the ER immediately with any worsening symptoms, severe pain, fevers, jaundice.
Interventions
Interventions:
*General Assessment Last Done: 02/03/24 17:56
*Nursing Disposition Last Done: 02/03/24 19:21
Discharge Date and Time
Print Language: MOSOTHO
[2024-02-03 18:14] LABS: % Basophils 0.7 % (0-2); % Immature Granulocytes 0.5 % (0-0.5); % Monocytes 10.7 % (1.7-9.3); % Neutrophils 56.1 % (42.2-75.2); Absolute Basophils 0.1 10^3/uL (0-0.2); Absolute Eosinophils 0.3 10^3/uL (0-0.7); Absolute Lymphocytes 2.5 10^3/uL (1.2-3.4); Absolute Monocytes 0.9 10^3/uL (0.1-0.6); Absolute Neutrophils 4.8 10^3/uL (1.4-6.5); Hematocrit 44.3 % (39.0-52.0); Mean Corp Hgb Conc. 33.9 g/dL (33.0-37.0); Mean Corpuscular Hgb 29.6 pg (27.0-31.0); Mean Corpuscular Volume 87.4 fL (80.0-94.0); Mean Platelet Volume 9.1 fL (7.4-10.4); Nucleated Red Blood Cells % 0 % (-); Platelet Count 233 10^3/uL (130-400); Red Blood Cell Count 5.07 10^6/uL (4.70-6.10); Red Cell Dist. Width 12.2 % (11.5-14.5); White Blood Cell Count 8.5 10^3/uL (4.8-10.8)
[2024-02-03 18:32] LABS: ALT (SGPT) 24 U/L (0-50); AST (SGOT) 27 U/L (17-59); Albumin 4.5 g/dl (3.5-5.0); Alkaline Phosphatase 47 U/L (38-126); Blood Urea Nitrogen 23 mg/dl (9-20); Calcium 9.3 mg/dl (8.4-10.2); Carbon Dioxide 29 mmol/L (22-30); Chloride 103 mmol/L (98-107); Glucose 96 mg/dl (70-99); Lipase 121 U/L (23-300); Potassium 4.1 mmol/L (3.5-5.1); Sodium 141 mmol/L (135-145); Total Bilirubin 0.5 mg/dl (0.2-1.3); Total Protein 7.1 g/dl (6.3-8.2); eGFR > 60.00
== END | disposition left against medical advice (07) ==
LOC: EMR 17:55
PROVIDERS: Physician Assistant; EMERGENCY PHYSICIAN Emergency Medicine
DX: K80.50 Calculus of bile duct without cholangitis or cholecystitis without obstruction (principal); I10 Essential (primary) hypertension; E78.00 Pure hypercholesterolemia, unspecified; F41.9 Anxiety disorder, unspecified; Z90.49 Acquired absence of other specified parts of digestive tract
CPT/HCPCS: 99283; 80053; 83690; 85025

== ENCOUNTER 2024-03-06 06:22 | Day surgery (SDC) | payer OTHER, SELFPAY ==
[2024-03-06] VITALS (16 sets, daily range): BP systolic 0–187; BP diastolic 80–115; BMI 31.1
[2024-03-06] MEDS: TYLENOL 1000 MG PO ×4 (06:33→23:33)
[2024-03-06] MEDS: NORMOSOL-R/PLASMALYTE-A 1000 IV (06:34)
[2024-03-06] MEDS: IC GREEN 2.5 MG IV (06:40)
--- NOTE | 2024-03-06 08:52 | W.IMMPOSTOP ---
Surgical Immed Post Op Note
-
Primary Surgeon: Shavonne
Assisting: Camille CHRISTIE
Pre-op Diagnosis: Biliary colic
Post-op Diagnosis: Chronic calculous cholecystitis
Procedure Performed: Robot assisted laparoscopic cholecystectomy
Anesthesia Type: GETA
Specimen / Cultures: Gallbladder
Estimated Blood Loss: 40cc
Complications: None immediate
Operative Findings: Extensive omental adhesions to midline, additional 8mm port placed to left lower quadrant and lap voyant used for lysis (20 mins); gallbladder with thickened wall with mild fibrosis; 19fr marialuisa drain placed as precaution, admit
for observation also as precaution
updated by phone, all ?s answered
--- NOTE | 2024-03-06 08:55 | OR.RPT ---
Operative Report
Operative Report
Primary Surgeon: Shavonne
Assisting: Camille CHRISTIE
Pre-op Diagnosis: Biliary colic
Post-op Diagnosis: Chronic calculous cholecystitis
Procedure Performed: Robot assisted laparoscopic cholecystectomy
Anesthesia Type: GETA
Specimen / Cultures: Gallbladder
Estimated Blood Loss: 40cc
Complications: None immediate
Operative Findings: Extensive omental adhesions to midline, additional 8mm port placed to left lower quadrant and lap voyant used for lysis (20 mins); gallbladder with thickened wall with mild fibrosis; 19fr marialuisa drain placed as precaution, admit
for observation also as precaution
Date of Surgery:� 03/06/24
Indications: This 64M developed biliary colic. Laparoscopic cholecystectomy with robotic assist was elected. His history is notable for post-op bleeding after laparoscopic appendectomy requiring return to OR and exploratory laparotomy. No bleeding
vessel was identified but raw surface oozing was noted. He subsequently underwent Hematology workup for bleeding problems which was negative. Today the plan is for robotic cholecystectomy, and to place a drain and admit for observation overnight to
ensure no further bleeding issues.
Description of procedure: The patient was placed on the operating table in the supine position. General anesthesia was induced. A time-out was completed verifying correct patient, procedure, site, positioning, and special equipment prior to
beginning this procedure. An orogastric tube was placed. The abdomen was prepped and draped in the usual sterile fashion. A stab incision was made in left upper quadrant and the Veress needle was inserted. Proper position was confirmed by aspiration
and saline meniscus test. The abdomen was insufflated with carbon dioxide to a pressure of 12mmHg. The patient tolerated insufflation well.
A 8mm trocar was then inserted above the umbilicus. The laparoscope was inserted and the abdomen inspected. No injuries from initial trocar placement or Veress needle insertion were noted. A wall of omental adhesions to the midline abdomeinal wall
was identified. An additional 8mm trocar was placed in the right lower quadrant and the voyant device was used to carefully take down the adhesions. Additional 8mm trocars were then inserted in the following locations: two in the right lower
quadrant and to the left of the umbilicus and just above. The table was placed in the reverse Trendelenburg position with the right side up. The dome of the gallbladder was grasped with an atraumatic grasper and retracted over the dome of the
liver. Dense omental adhesions were carefully teased down with gently blunt sweeps and judicious hook cautery. The infundibulum was then grasped with an atraumatic grasper and retracted toward the right lower quadrant. This maneuver exposed Calot�s
triangle. The peritoneum overlying the gallbladder infundibulum was then incised and the cystic duct and cystic artery identified and circumferentially dissected so that a clear view of the liver was achieved through a window between the cystic duct
an cystic artery. At this time, the only two structures going into the gallbladder were the cystic artery and cystic duct. The common duct was identified with ICG and protected.
The cystic duct was then doubly clipped and divided. The cystic artery was controlled with bipolar and divided. The gallbladder was then dissected from its peritoneal attachments by electrocautery. The posterior plane was fibrotic and the wall was
thickened. There was also oozing from liver bed and omentum that was monitored and controlled with bipolar and hook cautery. The gallbladder was removed using an endoscopic retrieval bag placed through the umbilical port. The gallbladder was passed
off the table as a specimen. The gallbladder fossa was irrigated with sterile saline. There was no evidence of bleeding from the gallbladder fossa or cystic artery or leakage of the bile from the cystic duct stump. The umbilical trocar site was
closed at the fascial level with 2-0 PDS. Secondary trocars were removed under direct vision and noted to be hemostatic. The abdomen was allowed to collapse. The skin was closed with subcuticular sutures of 4-0 monocryl and topical skin adhesive.
The orogastric tube was removed.
The patient tolerated the procedure well and was taken to the postanesthesia care unit in stable condition.
The assistance of Camille CHRISTIE was required due to the complexity of the procedure. During the procedure she assisted with retraction, resection, and closure of the wound.
--- NOTE | 2024-03-06 09:02 | HPS.HSE ---
Family Physician
-
Family Physician: NO INTERVIEW UNKNOWN
Chief Complaint
-
Abd pain
History of Present Illness
64M presents for elective robot assisted laparoscopic cholecystectomy for biliary colic. He underwent laparoscopic appendectomy several months ago that was c/b post-op bleeding requiring RTOR and ex lap for control. No bleeding vessel was found but
two areas of raw surface oozing were identified. He subsequently underwent Hematology w/u which was negative. Plan today is for elective operation, drain placement, and post-op observation overnight.
Medical History
Past Medical History
Past Medical History: Reports GERD and HTN
Additional Past Medical History:
anxiety, BPH
Past Surgical History: Reports Other (as per HPI)
Additional Past Surgical History:
as per HPI
Social History
Tobacco: Non-smoker
Alcohol: None
Drug: None
Personal:
Living: With Family
Family History
Family History: Not pertinent
Allergies / Home Medications
Allergies reflects when Allergies were last updated in [employer].
Home Medications with original date entered in [employer]
Allergy/Medication List:
NKDA
Review of Systems
-
A 12 point ROS was completed and negative except as noted: Yes
Physical Exam
Vital Signs
Vital Signs
Temp Pulse Resp BP Pulse Ox
98 F 72 16 163/84 98
03/06/24 06:20 03/06/24 06:20 03/06/24 06:20 03/06/24 06:20 03/06/24 06:20
Physical Exam
General: Well Developed, Well Nourished and No Apparent Distress
GI: Soft, Non Tender and Non Distended
Skin: Warm and Dry
Neuro: AO x 3
Psych: Calm
Data Reviewed
-
Old Records: Reviewed
Impression/Plan
-
IMPRESSION:
Biliary colic
PLAN:
Elective rCCY today with post-op admit for observation
[2024-03-06] MEDS: DILAUDID 0.5 MG IV (09:30)
[2024-03-06] MEDS: DILAUDID 0.25 MG IV ×2 (09:51→10:34)
[2024-03-06] MEDS: ZESTRIL 40 MG PO (10:31)
[2024-03-06] MEDS: ORETIC 25 MG PO (10:32)
[2024-03-06] MEDS: NORVASC 5 MG PO (10:40)
--- NOTE | 2024-03-06 11:08 | PTCARENOTE ---
Pt arrived to 2S in bed. Full assessment completed. Abdominal lap sites C/D/I, glued and SUBHA. Drain sight with a small amount of shadowing noted, drain intact. Pt remains hypertensive, denies pain/ anxiety. This RN confirmed with OFFICE ASSISTANT RECEPTIONIST that
antihypertensives were given, RN to reassess BP. Nasal cannula maintained. Pt instructed to ring for assistance getting OOB. Bed locked and in the lowest position, safety maintained. Oriented to room and call shultz.
--- NOTE | 2024-03-06 11:55 | PTCARENOTE ---
Pt remains hypertensive at this time. Dr Marvin notified, advised RN to continue to observe. Assessment ongoing.
[2024-03-06] MEDS: ROXICODONE 10 MG PO (12:07)
--- NOTE | 2024-03-06 15:59 | CM ---
Reviewed the chart notes and spoke with the patient and his spouse at the bedside. Patient admitted for robotic lap celestine. The patient resides with his spouse in a three story home with no steps to enter. The patient reports only DME in home is a
CPAP. The patient reports no VN or SNF. The patient confirmed his pharmacy of choice is the [facility] [address] [facility] and PCP is Dr. Joseph. CM continues to be available to patient/family and is monitoring medical plan for needs at
discharge.
Plan: Discharge to home when medically stable. Patient currently has a JADA drain in L mid abd.
[2024-03-06] MEDS: ROXICODONE 5 MG PO ×2 (16:07→23:30)
[2024-03-06] MEDS: PAXIL 30 MG PO (21:08)
[2024-03-07 03:15] VITALS: BP 135/87
[2024-03-07] MEDS: TYLENOL 1000 MG PO (05:57)
[2024-03-07 07:03] VITALS: BP 150/78
[2024-03-07] MEDS: NORVASC 5 MG PO (07:41)
[2024-03-07] MEDS: ZESTRIL 40 MG PO (07:41)
[2024-03-07] MEDS: CRESTOR 20 MG PO (07:41)
--- NOTE | 2024-03-07 08:57 | W.PN.GS2 ---
Today's Communication / Plan
-
DC
Assessment / Plan
-
64< POD1 s/p rCCY for chronic cholecystitis, obs overnight due to bleeding issues in the past
AFVSS, clinically well
Drain sanguinous but relatively low volume overnight
Ambulating without issue
Plan:
OK for DC home
Pt prefers to keep the drain as precaution, I am in agreement
Subjective Data
-
Date of Service: March 07, 2024
AFVSS, feels well, ambulating, carson PO, voiding, denies dizziness, denies diaphoresis, denies lightheadedness
Objective Data
-
Intake and Output
03/06/24 03/07/24 03/08/24
06:59 06:59 06:59
Intake Total 1590 / 1590
Output Total 195 / 195
Balance 1395 / 1395
Intake:
Oral fluids 1440 / 1440
IV fluids (Total) 150 / 150
normosol 150 / 150
Output:
Drain Output (Total) /
Left Middle Abdomen Primo-
Cole
Other:
Number of approximated SMALL 1
amounts of urine
Number of approximated MODERATE 3
amounts of urine
Number of approximated LARGE 1
amounts of urine
Vital Signs
Temp Pulse Resp BP Pulse Ox
97.9 F 72 18 150/78 98
03/07/24 07:03 03/07/24 07:03 03/07/24 07:03 03/07/24 07:03 03/07/24 07:03
Physical Exam
-
Gen: NAD
Abd: soft, appropttp, incisions cdi, drain sanguinous
Patient has a bean catheter: No
Patient has a central line: No
--- NOTE | 2024-03-07 09:00 | W.DS.TRANS ---
DC Summary - Nutritional Health Coach
-
Discharge Instructions:
Instructions:
Stand-Alone Forms:
Changes to Home Medications: No
Discharge Medications:
DC Medications w/original date entered in [employer]
amlodipine 5 mg tablet 5 mg PO DAILY Blood Pressure 11/17/23
hydrochlorothiazide 25 mg tablet 25 mg PO DAILY Blood Pressure 11/17/23
lisinopril 40 mg tablet 40 mg PO DAILY Blood Pressure 11/17/23
paroxetine HCl 30 mg tablet 30 mg PO HS Mental Health/Anxiety 11/17/23
rosuvastatin 20 mg tablet 20 mg PO DAILY High Cholesterol 11/17/23
tirzepatide (weight loss) 12.5 mg/0.5 mL subcutaneous pen injector (Zepbound) 12.5 mg SC MARSH WEIGHT LOSS 11/17/23
Home Medication Changes
Pending Results: No
--- NOTE | 2024-03-07 09:15 | CM ---
Reviewed the chart notes. Patient to be d/c'd with JADA drain in place. Referral sent to VN. continues to be available to patient/family and is monitoring medical plan for needs at discharge.
Plan: Discharge to home with VN services.
== END 2024-03-07 10:38 | disposition home or self-care (01) ==
LOC: SDS 06:22
PROVIDERS: ATTENDING PHYSICIAN Surgery
PROC: BF50200 Other Imaging of Bile Ducts using Fluorescing Agent, Indocyanine Green Dye, Intraoperative (ICD-10-PCS; 2024-03-06)
PROC: 0FT44ZZ Resection of Gallbladder, Percutaneous Endoscopic Approach (ICD-10-PCS; 2024-03-06)
PROC: 8E0W4CZ Robotic Assisted Procedure of Trunk Region, Percutaneous Endoscopic Approach (ICD-10-PCS; 2024-03-06)
DX: K80.10 Calculus of gallbladder with chronic cholecystitis without obstruction (principal)
CPT/HCPCS: 47562; C9776; 88304; C1776